=== PATIENT | male | born 1945 | race Hispanic/Latino ===

== ENCOUNTER 2017-07-28 12:20 | Inpatient (IN) | payer MEDICARE ==
--- NOTE | 2017-07-28 13:33 | RAD ---
UPRIGHT PORTABLE CHEST ONE VIEW: History: 72-year-old male with cough. Concern for congestive heart failure. Elevated troponin. Patient is on p eritoneal dialysis. Comparison: 03-22-17 FINDINGS: Cardiomegaly with bilateral vascular congestion and interstitial edema and pleural effusions, evidenc e for some congestive heart failure. IMPRESSION: Cardiomegaly with vascular congestion, interstitial edema, and pleural effusions, evidence for conges tive heart failure. Treatment and short term follow up suggested for resolution or stability. POS: [facility]
[2017-07-28 13:38] LABS: Mean Corpuscular HGB CONC 32.3 g/dL (32.0-36.0); Mean Corpuscular Hemoglobin 29.8 pg (27.0-31.0); Red Blood Cell (RBC) Count 4.03 mill/uL (4.70-6.10); White Blood Cell (WBC) Count 5.7 thou/uL (4.8-10.8)
[2017-07-28 14:00] LABS: ALT (SGPT) 14 U/L (8-55); AST (SGOT) 19 U/L (5-34); Albumin 3.4 g/dL (3.4-4.8); Alkaline Phosphatase 77 U/L (40-150); Anion Gap 23 mmol/L (10-20); BUN (Urea Nitrogen) 80 mg/dL (8.4-25.7); Bilirubin, Total 0.7 mg/dL (0.2-1.2); Calc. Creatinine Clearance 0 mL/min (70-130); Calcium 9.3 mg/dL (7.8-10.44); Carbon Dioxide 20 mmol/L (23-31); Chloride 96 mmol/L (98-107); Estimated GFR-MDRD 4; Globulin 3.3 g/dL (2.4-3.5); Glucose 113 mg/dL (83-110); Potassium 4.1 mmol/L (3.5-5.1); Protein, Total 6.7 g/dL (5.8-8.1); Sodium 135 mmol/L (136-145)
[2017-07-28 14:03] LABS: CKMB 4.3 ng/mL (0-6.6); Troponin I 0.277 ng/mL (< 0.028)
[2017-07-28 14:09] LABS: #Eosinphils 0.1 thou/uL (0.0-0.7); #Lymphocytes 0.4 thou/uL (1.20-3.40); #Monocytes 0.5 thou/uL (0.11-0.59); #Neutrophils 4.7 thou/uL (1.40-6.50); %Basophils 0.8 % (0.0-1.0); %Lymphocytes 7.1 % (21.0-51.0); %Monocytes 8.6 % (0.0-10.0); %Neutrophils 81.6 % (42.0-75.0); Mean Platelet Volume 9.1 fL (7.4-10.4); PLT Morphology Comment Appears Decreased; Platelet Count 100 thou/uL (130-400); RBC Morphology Normal
[2017-07-28] MEDS ORDERED: Acetaminophen 325 MG TAB ONE (15:08)
[2017-07-28] MEDS ORDERED: Dextrose 50% Abboject 50 ML SYRINGE SLOW IVP PRN (16:14)
[2017-07-28] MEDS ORDERED: Ondansetron ODT 4 MG TAB PO PRN (16:14)
[2017-07-28] MEDS ORDERED: Dextrose 5% in Water 1,000 ML IV PRN (16:14)
[2017-07-28] MEDS ORDERED: Oseltamivir 6 MG/ML ORAL SUSP PO SCH (16:30)
[2017-07-28] MEDS ORDERED: Furosemide 100 MG/10 ML VIAL SLOW IVP SCH (16:30)
[2017-07-28] MEDS ORDERED: Furosemide 40 MG/4 ML VIAL ONE (16:38)
[2017-07-28 17:04] LABS: CKMB 4.5 ng/mL (0-6.6)
[2017-07-28 17:10] LABS: Troponin I 0.328 ng/mL (< 0.028)
[2017-07-28] MEDS ORDERED: Ondansetron ODT 4 MG TAB SL PRN (19:32)
[2017-07-28] MEDS ORDERED: Acetaminophen 325 MG TAB PO PRN (19:32)
[2017-07-28] MEDS ORDERED: Ondansetron HCl/PF 4 MG/2 ML Vial IVP PRN (19:32)
[2017-07-28] MEDS: HYDROcodone/Acetaminophen 5/325 mg Tablet PO PRN (19:47)
[2017-07-28] MEDS: Sevelamer Carbonate 800 MG TAB PO SCH (19:48)
[2017-07-28 19:56] LABS: Troponin I 0.361 ng/mL (< 0.028)
[2017-07-28] MEDS: guaiFENesin ER 600 MG TAB PO SCH (21:13)
[2017-07-28] MEDS: Famotidine 20 MG TAB PO SCH (21:13)
[2017-07-28] MEDS: Heparin 5,000 UNITS/ML VIAL SC SCH (21:15)
[2017-07-29 01:23] LABS: CKMB 4.9 ng/mL (0-6.6)
[2017-07-29 01:34] LABS: Critical Call Chem Troponin I RESULT DECREASING; Troponin I 0.338 ng/mL (< 0.028)
[2017-07-29] MEDS: Benzonatate 100 MG CAP PO PRN ×2 (04:42→15:25)
[2017-07-29] MEDS: HYDROcodone/Acetaminophen 10/325 mg Tablet PO PRN ×2 (04:43→19:59)
[2017-07-29 05:45] LABS: Hemoglobin A1c 6.5 % (4.0-6.0)
[2017-07-29 05:48] LABS: #Eosinphils 0.1 thou/uL (0.0-0.7); #Lymphocytes 0.3 thou/uL (1.20-3.40); #Monocytes 0.4 thou/uL (0.11-0.59); #Neutrophils 3.6 thou/uL (1.40-6.50); %Basophils 0.7 % (0.0-1.0); %Lymphocytes 7.5 % (21.0-51.0); %Monocytes 9.3 % (0.0-10.0); %Neutrophils 79.6 % (42.0-75.0); Hemoglobin 11.5 g/dL (14.0-18.0); Mean Corpuscular HGB CONC 30.6 g/dL (32.0-36.0); Mean Corpuscular Hemoglobin 28.6 pg (27.0-31.0); Mean Corpuscular Volume 93.3 fl (80.0-94.0); Mean Platelet Volume 9.2 fL (7.4-10.4); Platelet Count 107 thou/uL (130-400); Red Blood Cell (RBC) Count 4.01 mill/uL (4.70-6.10); White Blood Cell (WBC) Count 4.5 thou/uL (4.8-10.8)
[2017-07-29 06:01] LABS: ALT (SGPT) 15 U/L (8-55); AST (SGOT) 19 U/L (5-34); Albumin 3.4 g/dL (3.4-4.8); Alkaline Phosphatase 79 U/L (40-150); Anion Gap 25 mmol/L (10-20); BUN (Urea Nitrogen) 78 mg/dL (8.4-25.7); Bilirubin, Total 0.7 mg/dL (0.2-1.2); Calc. Creatinine Clearance 7 mL/min (70-130); Calcium 9.1 mg/dL (7.8-10.44); Carbon Dioxide 19 mmol/L (23-31); Cardiac Risk 3.1 (Less than 4.5); Chloride 97 mmol/L (98-107); Cholesterol 147 mg/dl (< 200 Desired); Estimated GFR-MDRD 4; Globulin 3.5 g/dL (2.4-3.5); Glucose 277 mg/dL (83-110); HDL Cholesterol 47 mg/dL (>60 Neg Risk); LDL Cholesterol, Calculated 84 mg/dL; Magnesium 2.4 mg/dL (1.6-2.6); Potassium 3.9 mmol/L (3.5-5.1); Protein, Total 6.9 g/dL (5.8-8.1); Sodium 137 mmol/L (136-145); Triglycerides 81 mg/dL (Less than 150)
[2017-07-29] MEDS: HumaLOG 300 UNITS/3 ML VIAL SC PRN ×2 (06:28→21:32)
[2017-07-29 09:04] LABS: CKMB 5.1 ng/mL (0-6.6)
[2017-07-29 09:40] LABS: Troponin I 0.319 ng/mL (< 0.028)
[2017-07-29] MEDS: Gabapentin 300 MG CAP PO SCH (10:20)
[2017-07-29] MEDS: Acetaminophen 325 MG TAB PO PRN ×2 (10:20→15:20)
[2017-07-29] MEDS: guaiFENesin ER 600 MG TAB PO SCH ×2 (10:20→19:59)
[2017-07-29] MEDS: Aspirin 325 MG TAB PO SCH (10:20)
[2017-07-29] MEDS: Sevelamer Carbonate 800 MG TAB PO SCH ×3 (10:20→17:33)
[2017-07-29] MEDS: Heparin 5,000 UNITS/ML VIAL SC SCH ×2 (10:21→19:58)
--- NOTE | 2017-07-29 13:58 | PDOC.PN ---
- Subjective Encounter Start Date: 07/29/17 Encounter Start Time: 08:10 Pt feeling okay, breatihng slightly better. PD notes reviewed, lists 2400mL fluid removed, and i assume thats net. no f/c, no n/V/D/c. Echo just done, looks like a sig decreas ein systolic function, will ask cardiology to see. Trop stable at 0.3x X 3. tele unchanged no f/C, no N/V/d/C 10 point ROS performed and neg for all systems except as above. - Objective Resuscitation Status: full MAR Reviewed: Yes Vital Signs & Weight: Vital Signs (12 hours) Temp Pulse Pulse Pulse Pulse Resp BP 07/29/17 12:41 97.8 F 75 18 07/29/17 09:55 86 85 88 101/51 L BP BP BP Pulse Ox 07/29/17 12:41 93/55 L 96 07/29/17 09:55 104/55 L 108/51 L I&O: 07/28/17 07/29/17 07/30/17 06:59 06:59 06:59 Intake Total 300 Balance 300 Result Diagrams: 07/29/17 05:16 07/29/17 05:16 Additional Labs: Accuchecks 07/29/17 10:14 POC Glucose 71 Radiology Reviewed by me: Yes EKG Reviewed by me: Yes Phys Exam - Physical Examination Constitutional: NAD HEENT: PERRLA, moist MMs, sclera anicteric, oral pharynx no lesions Neck: no nodes, supple, full ROM 4cm JVD at 30 degrees Respiratory: no rhonchi, wheezing present coarse rales, low pitched exp wheezes. Cardiovascular: no rub regular rhythm, normal rate. 3/6 HSM at apex Gastrointestinal: soft, non-tender, no distention, positive bowel sounds Musculoskeletal: pulses present, edema present Neurological: non-focal, normal sensation, moves all 4 limbs Lymphatic: no nodes Psychiatric: normal affect, A&O x 3 Skin: no rash, normal turgor, cap refill <2 seconds Dx/Plan (1) Acute on chronic systolic CHF (congestive heart failure) Code(s): I50.23 - ACUTE ON CHRONIC SYSTOLIC (CONGESTIVE) HEART FAILURE Status : Acute Comment: follow up on echo, lasix not effective, renal following, CCM and fluid removal. Cardiology consulted (2) Anemia of renal disease Code(s): D63.1 - ANEMIA IN CHRONIC KIDNEY DISEASE Status: Chronic (3) Diabetes type 2, controlled Code(s): E11.9 - TYPE 2 DIABETES MELLITUS WITHOUT COMPLICATIONS Status: Chronic Qualifiers: Diabetes mellitus complication status: with kidney complications Diabetes mellitus complication detail: with nephropathy Diabetes mellitus mcc insulin use: without rn long term care use Qualified Code(s): E11.21 - Type 2 diabetes mellitus with diabetic nephropathy (4) ESRD on peritoneal dialysis Code(s): N18.6 - END STAGE RENAL DISEASE; Z99.2 - DEPENDENCE ON RENAL DIALYSIS Status: Chronic (5) Elevated troponin Code(s): R74.8 - ABNORMAL LEVELS OF OTHER SERUM ENZYMES Status: Chronic Comment: trop 0.2 to 0.3X x 3.no chest pain (6) HTN (hypertension) Code(s): I10 - ESSENTIAL (PRIMARY) HYPERTENSION Status: Chronic Qualifiers: Hypertension type: essential hypertension Qualified Code(s): I10 - Essential (primary) hypertension (7) Secondary hyperparathyroidism of renal origin Code(s): N25.81 - SECONDARY HYPERPARATHYROIDISM OF RENAL ORIGIN Status: Chronic - Plan cont current plan of care, PT/OT, respiratory therapy, out of bed/ambulate, DVT proph w/heparin * .
--- NOTE | 2017-07-29 16:35 | HP ---
DATE OF ADMISSION: 07/29/2017 TIME OF SERVICE: 1600 hours. CHIEF COMPLAINT: Shortness of breath. HISTORY OF PRESENT ILLNESS: Mr. Pereira is a 72-year-old male with history of diabetes , end-stage renal disease on hemodialysis for the last 2 years, hypertension, paroxysmal atrial fibri llation and coronary artery disease who presents to the Emergency Department for shortness of breath. The patient states he has had increasing shortness of breath with some left-sided chest discomfort or tightness for the last 3 days. He has had a cough that is productive of some phlegm that is yellow to green, but no blood. Shortness of breath continued to get worse and worse. He had some fevers mcnamara bjectively but did not have a thermometer to take and some night sweats. Denied any teeth chattering or rigors. He took some aspirin, but was not able to sleep. Continue to cough, especially when lyi ng flat. He did admit to some orthopnea and PND. Ultimately, presented to the emergency department for evaluation today. He was found to be in florid pulmonary edema, we subsequently called for admission. My arrival, the patient was more concerned about his cough than anything. He was given some Lasix wi th little effect. It was subsequently decided to admit to inpatient. Dr. Hanley, his biomedical engineering technologist, has been consulted, and is arranging peritoneal dialysis tonight for fluid removal. The patient had a f amador-like illness with body aches. He said flu swab has been taken, but I do not see an order nor resu lt yet. PAST MEDICAL HISTORY: 1. Diabetes mellitus, type 2. 2. End-stage renal disease on PD for 2 years. 3. Hypertension. 4. Paroxysmal atrial fibrillation. 5. Coronary artery disease. PAST SURGICAL HISTORY: Includes: 1. Left hallux amputation. 2. Peritoneal dialysis catheter placement. 3. Possible heart catheterization 3-4 years ago with and without a stress test. 4. Laparoscopic cholecystectomy remotely. HOME MEDICATIONS: The list in the emergency department was not correct. He says he is only taking g abapentin 300 mg p.o. daily, Zofran 4 mg as needed for nausea and vomiting, Renvela 800 mg p.o. t.i.d ., tramadol p.r.n. ALLERGIES: NKDA. FAMILY HISTORY: Significant for brother with a stroke, but his 80s. Has had diabetes in multiple [facility] members. SOCIAL HISTORY: Significant for him being Protestant. No blood product transfusion. Negativ e for habits x3, otherwise. REVIEW OF SYSTEMS: A 10-point review of systems was performed and negative for all other systems exc ept as stated as per HPI. PHYSICAL EXAMINATION: VITAL SIGNS: Temperature 98.2, pulse 93, blood pressure 132/79, respiratory 18, satting 92% on 4 lit ers. GENERAL: He is awake. He is alert. He is oriented x3. He is a disheveled looking, elderly Latin A mer[place] male who appears to be in moderate respiratory distress. HEENT: Normocephalic, atraumatic. Pupils equal, reactive bilaterally. There is no scleral icterus. Mucous membranes are moist. There are no visible lesions. No thrush. NECK: Supple. He has no lymphadenopathy, but does have a 6-7 cm of JVD bilaterally. He has got nor mal carotid upstrokes. I do not hear bruits. LUNGS: Diffuse coarse rales bilaterally. He has a prolonged expiratory phase and a high pitched whe ezing in inspiratory and expiratory. I do not hear rhonchi. CARDIOVASCULAR: Tachycardic but regular. There is a 3/6 holosystolic murmur best over the apex. He has got normal S1 and S2, otherwise. I do not hear an S4. ABDOMEN: Soft. He is distended with good bowel sounds. Peritoneal dialysis catheter is clean, dry, and intact. He has got no rebound, rigidity or guarding. EXTREMITIES: Show no signs of clubbing with 2+ edema to the mid tibial level. SKIN: Cool but cap refill around 3 seconds. MUSCULOSKELETAL: Normal to inspection. He has no inflammation and no palpable effusions. NEUROLOGIC: Cranial nerves II-XII grossly intact. He has 5/5 strength, no focal neurologic deficits . Normal speech pattern. LABORATORY DATA: Sodium 135, potassium 4.1, chloride 96, bicarbonate 20, BUN 80, creatinine 13.36, c alcium 9.3, glucose 113. Liver functions are completely normal. Troponin I was 0.277 and CK-MB of 4 .3. CBC showed a white count 5.7, hemoglobin 12.0, hematocrit 37.1, and platelets of 100,000. Chest x-ray showed cardiomegaly, vascular congestion and edema with bilateral effusions consistent wi th CHF. ASSESSMENT AND PLAN: 1. Acute congestive heart failure. On review, the patient does have a history of systolic congestiv e heart failure with an ejection fraction last known around 30-35%. We will give a large dose of Las ix to see if he responds, but ultimately needs fluid removal via dialysis. PD is being arranged, we will support him respiratory status napier and admit him to telemetry. A 2D echocardiogram has been or dered, serial cardiac biomarkers, will give him a little bit of a nitro paste if his blood pressure t olerates to see if the Lasix will have an effect. 2. Diabetes mellitus type 2, patient placed on diabetic renal diet with a sliding scale insulin. 3. Hypertension. Blood pressure borderline right now. We will hold off on any additional medicatio ns. 4. History of paroxysmal atrial fibrillation, and sinus tachycardia, right now, I will continue to w atch. 5. Acute hypoxic respiratory failure secondary to congestive heart failure. The patient will be adm itted as above.
[2017-07-29] MEDS: Senokot 8.6 MG TAB PO PRN (17:35)
--- NOTE | 2017-07-29 18:40 | CON ---
DATE OF CONSULTATION: 07/29/2017 REASON FOR CONSULTATION: Acute on chronic systolic heart failure. HISTORY OF PRESENT ILLNESS: Mr. Pereira is a 72-year-old gentleman who I have seen and evaluated in t he past. He has a history of cardiomyopathy of unknown etiology. He has been known in the last 3 ye ars. He has refused any further workup including coronary angiography. He states over the last week he has had increased shortness breath, lower extremity edema, PND, and o rthopnea. No chest pain or pressure noted. He is on peritoneal dialysis. PAST MEDICAL HISTORY: End-stage renal disease, diabetes mellitus, hypertension, atrial fibrillation. MEDICATIONS: Include Zofran, gabapentin, Renvela, tramadol. ALLERGIES: None. SOCIAL HISTORY: No current tobacco or alcohol use. REVIEW OF SYSTEMS: Ten point review of systems is reviewed and as above, otherwise negative. PHYSICAL EXAMINATION: GENERAL: He does appear elderly as stated age. VITAL SIGNS: Blood pressure 127/57, pulse 86, temperature afebrile. NEUROLOGIC: The patient is alert and oriented times 3 with no focal neurologic deficits. HEENT: Sclerae without icterus. Mouth has moist mucous membranes with normal pallor. NECK: No JVD. Carotid upstroke brisk. No bruits bilaterally. LUNGS: Crackles noted bilaterally. BACK: No scoliosis or kyphosis. CARDIAC: Regular rate and rhythm with normal S1 and S2. No S3 or S4 noted. No significant rubs, mu rmurs, thrills, or gallops noted throughout the precordium. PMI is not displaced. There is no mark ternal heave. ABDOMEN: Soft, nontender, nondistended. No peritoneal signs present. No hepatosplenomegaly. No abnormal striae. EXTREMITIES: 2+ femoral and 2+ dorsalis pedis pulses. No cyanosis, clubbing, or edema. SKIN: No gross abnormalities. PERTINENT LABORATORY DATA: Hemoglobin 11.5, peak troponin 0.38, creatinine 12.9. IMPRESSION: 1. Acute on chronic systolic heart failure. 2. Peritoneal dialysis. RECOMMENDATIONS: It is certainly difficult to treat with Lasix and Zaroxolyn at this time. I would discuss with Nephrology on how to increase his peritoneal dialysis for fluid removal. I will discuss once again on proceeding with angiography to assess his anatomy. He is Congregational.
[2017-07-29 19:19] LABS: Troponin I 0.356 ng/mL (< 0.028)
[2017-07-29] MEDS: Famotidine 20 MG TAB PO SCH (20:00)
[2017-07-30] MEDS: HYDROcodone/Acetaminophen 10/325 mg Tablet PO PRN (00:01)
[2017-07-30] MEDS: Benzonatate 100 MG CAP PO PRN ×2 (00:02→17:16)
[2017-07-30 05:05] LABS: #Eosinphils 0.1 thou/uL (0.0-0.7); #Lymphocytes 0.3 thou/uL (1.20-3.40); #Monocytes 0.7 thou/uL (0.11-0.59); #Neutrophils 4.3 thou/uL (1.40-6.50); %Basophils 0.3 % (0.0-1.0); %Eosinophils 1.9 % (0.0-10.0); %Lymphocytes 6.2 % (21.0-51.0); %Monocytes 13.5 % (0.0-10.0); %Neutrophils 78.1 % (42.0-75.0); Mean Corpuscular HGB CONC 32.1 g/dL (32.0-36.0); Mean Corpuscular Hemoglobin 29.9 pg (27.0-31.0); Mean Corpuscular Volume 93.1 fl (80.0-94.0); Mean Platelet Volume 9.2 fL (7.4-10.4); Platelet Count 97 thou/uL (130-400); White Blood Cell (WBC) Count 5.5 thou/uL (4.8-10.8)
[2017-07-30 05:23] LABS: Anion Gap 24 mmol/L (10-20); BUN (Urea Nitrogen) 77 mg/dL (8.4-25.7); Calc. Creatinine Clearance 7 mL/min (70-130); Calcium 8.8 mg/dL (7.8-10.44); Carbon Dioxide 21 mmol/L (23-31); Chloride 97 mmol/L (98-107); Estimated GFR-MDRD 4; Glucose 180 mg/dL (83-110); Magnesium 2.4 mg/dL (1.6-2.6); Potassium 3.8 mmol/L (3.5-5.1); Sodium 138 mmol/L (136-145)
--- NOTE | 2017-07-30 06:11 | PDOC.EVN ---
Event Note - Event Note Event Note: called by nursing for a-fib w RVR.Pt w h/o same. non compliant w meds. cardiazem iv X1 given without effect.will restart coreg BID.cardiology following.Will defer Amiodarone and anticoagulation to day team to address.HD stable for now.
--- NOTE | 2017-07-30 06:26 | CON ---
DATE OF CONSULTATION: 07/29/2017 HISTORY OF PRESENT ILLNESS: Mr. Pereira is a 72-year-old male with ESRD currently on periton eal dialysis and admitted for shortness of breath. He was noted to be in CHF. We have used 4.25% PD solution to enhance ultrafiltration. He tells me this afternoon that shortness of breath is little improved. He denies any chest pain with this. REVIEW OF SYSTEMS: Positive for shortness of breath. No syncopal episode. Positive for productive cough. No nausea, no vomiting, no fever or chills, no headache, no diplopia, no hematochezia, no suad javy, no hematemesis, no syncopal episode, no fever or chills. No dysuria, no urinary frequency. No headache. Denies any new rash. PAST MEDICAL HISTORY: ESRD from diabetic nephropathy, hypertension, type 2 diabetes mellitus, status post congestive heart failure. PAST SURGICAL HISTORY: Status post PD catheter placement, status post amputation of left great toe, status post cholecystectomy. SOCIAL HISTORY: Patient is . Lives with his , lives in [place], 3 children. He is a retired ceramic layer. Education, elementary. Currently not smoking. Currently, no alcohol intak e, sedentary lifestyle. ALLERGIES: None. TRAUMA: None. IMMUNIZATIONS: Up to date. HOSPITALIZATIONS: Please see past medical history. FAMILY HISTORY: No family history of ESRD. PHYSICAL EXAMINATION: VITAL SIGNS: Blood pressure 127/57, heart rate 86, respiratory rate 16, temperature 97.2, pulse ox 9 8%. GENERAL: Awake, supine, comfortable, not in overt distress. SKIN: Adequate turgor. HEENT: Slightly pale conjunctivae, anicteric sclerae. NECK: No neck mass, no carotid bruits, no JVD. CHEST: No deformities. LUNGS: Harsh grade sounds. HEART: Normal sinus rhythm. No murmur, no gallops, no rubs. ABDOMEN: Globular, soft, nontender. Positive for PD catheter. EXTREMITIES: Positive for edema, no deformities. NEUROLOGIC: Awake, oriented to 3 spheres. Moving all extremities. No tremors, no asterixis. MEDICATIONS: On 07/29/2017, [place] 10/325 q.4 p.r.n., DuoNeb q.4 p.r.n., aspirin 325 mg daily, Tessal on Perles 100 mg p.o. t.i.d., Pepcid 20 mg q.h.s., Neurontin 300 mg daily, heparin 5000 units subcu b .i.d., Renvela 800 mg p.o. t.i.d. with meals. LABORATORY DATA: 1. Laboratories of 07/29/2017, white count 4.5, hemoglobin 11.5, hematocrit 37.4. Sodium 137, potas sium is 3.9, chloride 97, carbon dioxide 19, BUN 78, creatinine 12.96, glucose 277, AST 19, ALT 15, a lbumin 3.4, troponin I 0.319. Cholesterol 147. On 07/28/2017, chest x-ray showed cardiomegaly with CHF. 2. On 07/29/2017, cardiac echo showed EF of 20% to 25%. ASSESSMENT AND PLAN: 1. Congestive heart failure - we will adjust the peritoneal dialysis regimen. We will continue to u se a 4.25% PD solution and increased the fill volume 2.5 liters to enhance ultrafiltration. 2. End-stage renal disease, stable, continuing current peritoneal dialysis of at least 10-11 hertz. Please note I have increased the fill volume to 2.5 liters using 4.25% PD solution. Overall, I agree with current management. If needed, we can consult Cardiology. I have also reviewe d this patient's medications - due to decreased EF. I would suggest we start this patient on losarta n 25 mg tab q.a.m. We will check base met and CBC in a.m.
[2017-07-30] MEDS: Carvedilol 6.25 MG TAB PO SCH ×3 (06:38→17:25)
[2017-07-30] MEDS ORDERED: Losartan 25 MG TAB PO SCH (09:00)
[2017-07-30] MEDS: Sevelamer Carbonate 800 MG TAB PO SCH ×3 (09:12→17:25)
[2017-07-30] MEDS: Aspirin 325 MG TAB PO SCH (09:12)
[2017-07-30] MEDS: Heparin 5,000 UNITS/ML VIAL SC SCH ×2 (09:12→20:41)
[2017-07-30] MEDS: guaiFENesin ER 600 MG TAB PO SCH ×2 (09:13→20:41)
[2017-07-30] MEDS: Magnesium Oxide 400 MG TAB PO SCH (09:13)
[2017-07-30] MEDS: Gabapentin 300 MG CAP PO SCH (09:13)
--- NOTE | 2017-07-30 09:23 | PRG ---
DATE OF SERVICE: 07/30/2017 SUBJECTIVE: Mr. Pereira is 72-year-old male with ESRD, currently on maintenance peritoneal d ialysis. Due to the shortness of breath, we have changed his PD solution to 4.25% solution to enhanc e ultrafiltration. We pulled about 2.4 liters of fluid overnight with this patient. He still has so me mild shortness of breath. I did discuss the case with Dr. Willson. I was told that the patient was declining cardiac catheterization. However, I rediscussed the issue with the patient and is now agreeing to proceed with cardiac catheterization. Also told me he declines blood transfusion. He t ells me he is Druze. My plan is to continue 4.25% PD solution to enhance ultrafiltration for fluid removal. PHYSICAL EXAMINATION: VITAL SIGNS: Blood pressure is 126/76, heart rate is 122, temperature 100.8. GENERAL: Noted to be awake, alert, not in overt distress. SKIN: Adequate turgor. HEENT: He has pinkish conjunctivae, anicteric sclerae. NECK: No neck mass, no carotid bruits, no JVD. LUNGS: Decreased breath sounds. HEART: Tachycardic. ABDOMEN: Globular, soft, nontender. Positive for PD catheter. EXTREMITIES: Trace edema. MEDICATIONS: Medications of 07/30/2017 was reviewed. LABORATORY DATA: Laboratories of 07/30/2017; white count 5.5, hemoglobin 12, sodium 138, potassium 3 .8, chloride 97, carbon dioxide 21, BUN 77, creatinine 12.47, glucose 180, calcium 8.8, magnesium 2.4 . ASSESSMENT AND PLAN: 1. Fever - we will continue to observe. 2. End-stage renal disease, stable. We will continue 4.25% peritoneal dialysis solution to enhance ultrafiltration and fluid removal with this patient. At this time, there is no indication to convert ing to hemodialysis at the present time. 3. Shortness of breath, multifactorial - could be congestive heart failure. Congestive heart failur e could also be secondary to cardiac ischemia. Case discussed with Dr. Willson. Initially, the pa kennedy was declining cardiac catheterization, but on a second conversation with him, he wishes to proc eed with the cardiac catheterization. We will recheck basic metabolic panel and CBC in a.m.
[2017-07-30] MEDS: DOBUTamine 500 mg/250 ml 250 ML IVPB SCH (15:16)
--- NOTE | 2017-07-30 15:22 | PDOC.PN ---
- Subjective Encounter Start Date: 07/30/17 Encounter Start Time: 08:15 Pt back into afib with RVR earlier this morning, got Cardizem IV x 1, litttle effect. BP low, pt to have PD dialysate removed. No F/C, no N/V/d/C, +cough, no sputum production. Pt with O2 in 80, BP borderline. Since initial visit, dialysate revealed 2500mL removed, talked with Dr Willson , 500mL givne back IV, but still low BP. Starte don at 5mcg 10 point ROS performed and neg for all systems except as per HPI - Objective MAR Reviewed: Yes Vital Signs & Weight: Vital Signs (12 hours) Temp Pulse Resp BP BP BP Pulse Ox 07/30/17 14:50 98.4 F 77 28 H 97/52 L 96 07/30/17 14:02 102/59 L 07/30/17 13:20 90 84/54 L 07/30/17 11:31 98.6 F 99 24 H 88/58 L 93 L 07/30/17 09:13 98.6 F 90 24 H 93 L 07/30/17 07:30 99.3 F 138 H 20 168/107 H 88 L 07/30/17 06:38 126/76 07/30/17 03:50 100.8 F H 122 H 20 115/73 92 L I&O: 07/29/17 07/30/17 07/31/17 06:59 06:59 06:59 Intake Total 960 Output Total 0 Balance 960 Result Diagrams: 07/30/17 04:12 07/30/17 04:12 Additional Labs: Accuchecks 07/29/17 07/29/17 21:29 17:18 POC Glucose 260 H 94 Radiology Reviewed by me: Yes EKG Reviewed by me: Yes Phys Exam - Physical Examination Constitutional: NAD HEENT: PERRLA, moist MMs, sclera anicteric, oral pharynx no lesions Neck: no nodes, supple, full ROM 5cm JVD, no guillermo-A waves Respiratory: no rhonchi, wheezing present diffuse wheezing and coarse rales bilaterally Cardiovascular: no rub tachy, irregular Gastrointestinal: soft, non-tender, no distention, positive bowel sounds Musculoskeletal: pulses present, edema present Neurological: non-focal, normal sensation, moves all 4 limbs Lymphatic: no nodes Psychiatric: normal affect, A&O x 3 Skin: no rash, normal turgor, cap refill <2 seconds Dx/Plan (1) Acute on chronic systolic CHF (congestive heart failure) Code(s): I50.23 - ACUTE ON CHRONIC SYSTOLIC (CONGESTIVE) HEART FAILURE Status : Acute Comment: follow up on echo, lasix not effective, renal following, CCM and fluid removal. Cardiology consulted. PD X 2 completed about 5L removed total. No improvement. Pt unabl eto lay flat, cannot cath atpresent. Start , watch output (2) Anemia of renal disease Code(s): D63.1 - ANEMIA IN CHRONIC KIDNEY DISEASE Status: Chronic (3) Diabetes type 2, controlled Code(s): E11.9 - TYPE 2 DIABETES MELLITUS WITHOUT COMPLICATIONS Status: Chronic Qualifiers: Diabetes mellitus complication status: with kidney complications Diabetes mellitus complication detail: with nephropathy Diabetes mellitus meterman insulin use: without longterm use Qualified Code(s): E11.21 - Type 2 diabetes mellitus with diabetic nephropathy (4) ESRD on peritoneal dialysis Code(s): N18.6 - END STAGE RENAL DISEASE; Z99.2 - DEPENDENCE ON RENAL DIALYSIS Status: Chronic Comment: nightly PD X 10 hours at present, pulling about 2.5L per night (5) Elevated troponin Code(s): R74.8 - ABNORMAL LEVELS OF OTHER SERUM ENZYMES Status: Chronic Comment: trop 0.2 to 0.3X x 3.no chest pain (6) HTN (hypertension) Code(s): I10 - ESSENTIAL (PRIMARY) HYPERTENSION Status: Chronic Qualifiers: Hypertension type: essential hypertension Qualified Code(s): I10 - Essential (primary) hypertension Comment: BP low, on , not titrating. BP meds on hold (7) Secondary hyperparathyroidism of renal origin Code(s): N25.81 - SECONDARY HYPERPARATHYROIDISM OF RENAL ORIGIN Status: Chronic - Plan * .
[2017-07-30] MEDS: Acetaminophen 325 MG TAB PO PRN (17:16)
[2017-07-30] MEDS ORDERED: Sodium Chloride 0.9% 500 ML IVPB SCH (19:45)
[2017-07-30] MEDS: Famotidine 20 MG TAB PO SCH (20:41)
--- NOTE | 2017-07-30 21:16 | PRG ---
DATE OF SERVICE: 07/30/2017 SUBJECTIVE: Mr. Pereira continues to have increased shortness of breath. Today, he had difficulty wi th hypotension and required Dobutrex. No chest pain or pressure noted. PHYSICAL EXAMINATION: VITAL SIGNS: Blood pressure 141/57, pulse 77, temperature 98.4. LUNGS: Crackles noted bilaterally. CARDIAC: Irregularly irregular. ABDOMEN: Soft, nontender, nondistended. EXTREMITIES: No edema. IMPRESSION: Cardiomyopathy of unknown etiology. RECOMMENDATIONS: Mr. Pereira has agreed to proceed with angiography. I have discussed the procedure in full detail with Mr. Pereira. The risks of the procedure include but are not limited to the follow ing: , stroke, CA, need for emergency surgery, loss of limb, bleeding, and infection, as well as a re action to the dye causing kidney failure and needing long-term dialysis. I also discussed the risks of PCI to include all of the above including coronary dissection and perforation in addition to acute stent thrombosis and restenosis. All questions were answered. We would also recommend amiodarone therapy for recent atrial fibrillation. Unfortunately, Mr. Jeanette cueva has some difficulty with compliance in the past. We would recommend a bare metal stent if needed. We will schedule once he is able to lie on supine position.
[2017-07-31 04:36] LABS: #Eosinphils 0.1 thou/uL (0.0-0.7); #Lymphocytes 0.3 thou/uL (1.20-3.40); #Monocytes 0.4 thou/uL (0.11-0.59); %Basophils 0.2 % (0.0-1.0); %Eosinophils 1.5 % (0.0-10.0); %Lymphocytes 7.9 % (21.0-51.0); %Monocytes 9.3 % (0.0-10.0); %Neutrophils 81.1 % (42.0-75.0); Hemoglobin 10.5 g/dL (14.0-18.0); Mean Corpuscular HGB CONC 31.7 g/dL (32.0-36.0); Mean Corpuscular Hemoglobin 29.4 pg (27.0-31.0); Mean Corpuscular Volume 92.8 fl (80.0-94.0); Mean Platelet Volume 8.8 fL (7.4-10.4); Platelet Count 93 thou/uL (130-400); RBC Distribution Width 13.9 % (11.5-14.5); Red Blood Cell (RBC) Count 3.56 mill/uL (4.70-6.10); White Blood Cell (WBC) Count 3.7 thou/uL (4.8-10.8)
[2017-07-31 04:39] LABS: Anion Gap 19 mmol/L (10-20); BUN (Urea Nitrogen) 76 mg/dL (8.4-25.7); Calc. Creatinine Clearance 7 mL/min (70-130); Carbon Dioxide 25 mmol/L (23-31); Chloride 96 mmol/L (98-107); Estimated GFR-MDRD 4; Glucose 312 mg/dL (83-110); Magnesium 2.3 mg/dL (1.6-2.6); Potassium 3.6 mmol/L (3.5-5.1); Sodium 136 mmol/L (136-145)
[2017-07-31] MEDS ORDERED: Iopamidol 370 76% 100 ML VIAL ONE (08:06)
[2017-07-31] MEDS ORDERED: Epoetin (ESRD) 20,000 UNITS/ML SC SCH (09:00)
[2017-07-31] MEDS: Gabapentin 300 MG CAP PO SCH (09:01)
[2017-07-31] MEDS: Carvedilol 6.25 MG TAB PO SCH ×2 (09:01→17:49)
[2017-07-31] MEDS: Sevelamer Carbonate 800 MG TAB PO SCH ×3 (09:01→17:49)
[2017-07-31] MEDS: Aspirin 325 MG TAB PO SCH (09:01)
[2017-07-31] MEDS: Acetaminophen 325 MG TAB PO PRN ×4 (09:02→20:37)
[2017-07-31] MEDS: Senokot 8.6 MG TAB PO PRN (09:02)
[2017-07-31] MEDS: Heparin 5,000 UNITS/ML VIAL SC SCH ×2 (09:02→20:28)
[2017-07-31] MEDS: Magnesium Oxide 400 MG TAB PO SCH (09:02)
[2017-07-31] MEDS: guaiFENesin ER 600 MG TAB PO SCH ×2 (09:02→20:28)
[2017-07-31] MEDS: Benzonatate 100 MG CAP PO PRN ×3 (09:02→14:06)
--- NOTE | 2017-07-31 09:23 | PRG ---
DATE OF SERVICE: 07/31/2017 SUBJECTIVE: Mr. Pereira is a 72-year-old male with ESRD - currently on peritoneal dialysis a nd admitted for shortness of breath. He was found to be in CHF. Cardiology has been following. The plan by Cardiology is eventually for him to undergo cardiac catheterization. I have maxed out ultra filtration with this patient by changing his PD solution to 4.25% PD solution. He seems to be tolera ting this. During the course of his hospitalization, he was also been noted to be on the hypotensive side. He has been started on IV dobutamine. As per recommendation with Cardiology, we will start h im on a fixed dose of dopamine 2.5 mcg per kilogram. We are trying to optimize patient prior to the set cardiac catheterization. Please note he is also Spiritism and is declining any blood tra nsfusion. This morning, he tells me his shortness of breath is slightly. PHYSICAL EXAMINATION: VITAL SIGNS: Blood pressure is 104/56, heart rate 85, respiratory rate 18, temperature 98.4, pulse o x 96%. GENERAL: Awake, supine, comfortable, not in overt distress. SKIN: Adequate turgor. HEENT: Slightly pale conjunctivae, anicteric sclerae. NECK: No neck mass, no carotid bruits, no JVD. CHEST: No deformities. LUNGS: Decreased breath sounds. HEART: Normal sinus rhythm. No murmur, no gallops, no rubs. ABDOMEN: Globular, soft, nontender, no masses. EXTREMITIES: Trace edema, no deformities. MEDICATIONS: Medications of 07/31/2017 was reviewed. LABORATORY DATA: Laboratories of 07/31/2017; white count 3.7, hemoglobin 10.5, sodium 136, potassium 3.6, chloride 96, carbon dioxide 25, BUN 76, creatinine 12.33, glucose 312, calcium 8.0, magnesium 2 .3. ASSESSMENT AND PLAN: 1. Hypotension - we will start on dopamine at 2.5 mcg per kilogram. In addition, we will be discont inuing the patient's losartan. 2. Congestive heart failure - on IV dobutamine, maxing out ultrafiltration with the dialysis. Patie nt is for a planned cardiac catheterization. 3. Anemia - patient is Spiritism. No blood transfusion will be done. However, I have decid ed to start Epogen and iron supplementation with this patient. 4. End-stage renal disease, stable. Continue current CCPD regimen and will continue to use 4.25% pe ritoneal dialysis solution to enhance ultrafiltration. Overall, prognosis remains guarded.
[2017-07-31] MEDS: DOBUTamine 500 mg/250 ml 250 ML IVPB SCH (09:41)
[2017-07-31] MEDS: DOPamine 400 MG/D5W 250 ML 250 ML IVPB SCH ×2 (10:27→23:30)
--- NOTE | 2017-07-31 11:38 | PDOC.PN ---
- Subjective Encounter Start Date: 07/31/17 Encounter Start Time: 10:15 Pt feels better, some sharp parasternal CP with coughing and deep ainspiration. BP still low on , Dr Willson added 2.5 of DA. No F/C, no N/V/D/C. Breathing better, HR down. Pt informed Dr Willson that he had a heart cath 4 years ago in [place], attempting to get records. If no CAD then, likely non-ischemic CM and no need for cath now. 10 point ROS performed and neg for all systems except as per HPI - Objective Resuscitation Status: FULL MAR Reviewed: Yes Vital Signs & Weight: Vital Signs (12 hours) Temp Pulse Resp BP BP Pulse Ox 07/31/17 09:01 104/56 L 07/31/17 07:59 96 07/31/17 07:57 101 H 20 96 07/31/17 07:20 98.4 F 85 18 96 07/31/17 07:11 97.9 F 61 18 104/56 L 94 L 07/31/17 03:10 98.4 F 85 18 81/60 L 96 07/31/17 00:14 83 22 H 96 Weight Weight 210 lb 8 oz I&O: 07/30/17 07/31/17 08/01/17 06:59 06:59 06:59 Intake Total 960 1599 Output Total 0 0 Balance 960 1599 Result Diagrams: 07/31/17 03:55 07/31/17 03:55 Additional Labs: Accuchecks 07/31/17 07/31/17 07/30/17 10:54 06:03 21:14 POC Glucose 85 201 H 218 H 07/30/17 07/30/17 17:00 11:30 POC Glucose 111 H 133 H Radiology Reviewed by me: Yes EKG Reviewed by me: Yes Phys Exam - Physical Examination Constitutional: NAD mild resp distress, chronically ill-appearing HEENT: PERRLA, moist MMs, sclera anicteric, oral pharynx no lesions Neck: no nodes, supple, full ROM 5cm JVD Respiratory: no wheezing, no rhonchi coarse B breath sounds Cardiovascular: RRR, no rub 3/6 HSM apex Gastrointestinal: soft, non-tender, no distention, positive bowel sounds Musculoskeletal: pulses present, edema present Neurological: non-focal, normal sensation, moves all 4 limbs Lymphatic: no nodes Psychiatric: normal affect, A&O x 3 Skin: no rash, normal turgor, cap refill <2 seconds Dx/Plan (1) Acute on chronic systolic CHF (congestive heart failure) Code(s): I50.23 - ACUTE ON CHRONIC SYSTOLIC (CONGESTIVE) HEART FAILURE Status : Acute Comment: echo with 20-25% EF, lasix not effective, renal following, CCM and fluid removal. Changed to hightest UF via PD we have. Cardiology consulted. PD X 2 completed about 7.5L removed total. No improvement. Pt unable to lay flat, cannot cath at present. Started , Dopamine added today, watch output (2) Anemia of renal disease Code(s): D63.1 - ANEMIA IN CHRONIC KIDNEY DISEASE Status: Chronic (3) Diabetes type 2, controlled Code(s): E11.9 - TYPE 2 DIABETES MELLITUS WITHOUT COMPLICATIONS Status: Chronic Qualifiers: Diabetes mellitus complication status: with kidney complications Diabetes mellitus complication detail: with nephropathy Diabetes mellitus halfway insulin use: without halfway use Qualified Code(s): E11.21 - Type 2 diabetes mellitus with diabetic nephropathy (4) ESRD on peritoneal dialysis Code(s): N18.6 - END STAGE RENAL DISEASE; Z99.2 - DEPENDENCE ON RENAL DIALYSIS Status: Chronic Comment: nightly PD X 10 hours at present, pulling about 2.5L per night. Changed higher % dialysate to maximize UF. (5) Elevated troponin Code(s): R74.8 - ABNORMAL LEVELS OF OTHER SERUM ENZYMES Status: Chronic Comment: trop 0.2 to 0.3X x 3. no chest pain (6) HTN (hypertension) Code(s): I10 - ESSENTIAL (PRIMARY) HYPERTENSION Status: Chronic Qualifiers: Hypertension type: essential hypertension Qualified Code(s): I10 - Essential (primary) hypertension Comment: BP low, on , not titrating. BP meds on hold (7) Secondary hyperparathyroidism of renal origin Code(s): N25.81 - SECONDARY HYPERPARATHYROIDISM OF RENAL ORIGIN Status: Chronic - Plan * .
[2017-07-31] MEDS ORDERED: Acetaminophen/Codeine 30-300mg Tablet PO PRN ×4 (13:28→13:36)
[2017-07-31] MEDS ORDERED: Nitroglycerin 0.4 MG TAB (25 Tab Bottle) SL PRN (13:28)
[2017-07-31] MEDS ORDERED: Sodium Chloride 0.9% 200 ML IV SCH (13:30)
[2017-07-31] MEDS ORDERED: Sodium Chloride 0.9% 1,000 ML IV SCH ×3 (13:30→14:15)
[2017-07-31] MEDS: Sodium Chloride 0.9% 1,000 ML IV SCH ×2 (14:07→23:32)
--- NOTE | 2017-07-31 14:32 | CON ---
DATE OF CONSULTATION: 07/31/2017 SERVICE: Pulmonary Medicine. REASON FOR CONSULTATION: ICU patient. HISTORY OF PRESENT ILLNESS: The patient is a 72-year-old male with past medical history sig nificant for end-stage renal disease on peritoneal dialysis. He presented to the emergency departmen with increasing shortness of breath and some left-sided chest discomfort and tightness that had bee n ongoing for a period of 3 days. The chest pain was worse whenever he was coughing. He has had gre en to yellow sputum. He denies any current fevers, chills, nausea, vomiting, or current chest discom fort. The chest pain that he previously noted has essentially resolved. Denies any fevers, myalgia or malaise. He has had very frequent headaches over the last couple of days. Otherwise, there has b een no interval change to his condition. He did have an appetite up until 3 days ago. At this point , he does not have much of one. He was placed on the floor. Because of marginal blood pressures shannon und the time of his catheterization, he was transitioned to the ICU. PAST MEDICAL HISTORY: 1. Type 2 diabetes mellitus. 2. End-stage renal disease, on peritoneal dialysis x2 years. 3. Hypertension. 4. Paroxysmal atrial fibrillation. 5. Coronary artery disease. PAST SURGICAL HISTORY: 1. Left great toe amputation. 2. Peritoneal dialysis catheter placement. 3. Cardiac catheterization x2. 4. Laparoscopic cholecystectomy. ALLERGIES: No known drug allergies. MEDICATIONS LIST: List of his inpatient medications were reviewed. Multiple updates were made at th is time. FAMILY HISTORY: Noncontributory. SOCIAL HISTORY: He is a Yazidism. He would refuse any blood apply to transfusions. Negati ve for alcohol, tobacco or illicit drug use otherwise. REVIEW OF SYSTEMS: General, head, ears, eyes, nose, throat, cardiovascular, respiratory, GI, , mus culoskeletal, neurologic and skin is negative except as mentioned in the HPI. PHYSICAL EXAMINATION: VITAL SIGNS: Afebrile with T-max of 100.8, pulse 125, blood pressure 83/58, respirations 23, saturat ion 92% on 4 liters nasal cannula. GENERAL: The patient is awake and alert, in no apparent distress. LUNGS: Decent air entry with bilateral wheezing and rhonchi present. I did not appreciate any crack les, but only listening anteriorly. HEART: Tachycardic. Irregular. ABDOMEN: Soft. Minimal tenderness to palpation with slight rebound. Bowel sounds are highly active . No guarding. MUSCULOSKELETAL: No cyanosis or clubbing. There is no pitting in the bilateral lower extremities. NEUROLOGIC: Grossly nonfocal. GENITOURINARY: No Batres. LABORATORY DATA: WBC 3.7, hemoglobin 10.5, platelets 93,000. Creatinine 12.33. Basic metabolic pro file is otherwise unremarkable. Magnesium 2.3. Cardiac enzymes were gently trending upward to 0.356 . Hemoglobin A1c 6.5. Liver function studies are completely unremarkable. Influenza A and B is neg ative. IMAGING: Chest x-ray demonstrates right-sided pleural effusion, apparently is layering. There is fl uid in both fissures that are identified. There is a left-sided pleural parenchymal abnormality. Ce phalization is present in the bilateral lung ortiz. There is a possible right lower lobe alveolar o pacification. ASSESSMENT: 1. Acute hypoxic respiratory failure. 2. Acute bronchitis. 3. End-stage renal disease, on peritoneal dialysis. 4. Severe sepsis, source unknown. PLAN: Agree with blood cultures. Empiric antibiotics will be initiated. The patient is currently o n dopamine, but he is clinically a little dry. As such, I will give him a liter of fluid. Hopefully , he will be off of the dopamine at the end of this. If not, IV access will need to be established. Dr. Willson's has put him on some maintenance fluids which will be continued for the time being. Pulmonary or Critical Care will continue to follow in this location.
[2017-07-31] MEDS: Amiodarone HCl 450 MG, Admixture Fee 1 EACH in Dextrose 5% in Water 250 ML IVPB SCH ×6 (16:00→23:28)
--- NOTE | 2017-07-31 19:21 | CON ---
DATE OF CONSULTATION: 07/31/2017 Mr. Pereira continued to remain hypotensive after angiography. His LVEDP was estimated 20. This went against volume contraction. This also went against heart failure. There was concern for sepsis. T he patient was fairly asymptomatic. I did discuss the case with Dr. Dodson as well as Dr. Daniel Pascal. They decided to proceed with IC U observation due to persistent hypotension despite pressure support. We will place him on dobutamine as well as Dobutrex. We will also get blood cultures to assess for a n infection. I also spent 30 minutes with his family discussing the options. I did discuss proceeding with a ILANA cardioversion. This will be scheduled for tomorrow. He converted to atrial fibrillation 2 days ago. Since that time, he has been hypotensive. I am sure whether atrial fibrillation is the major or mi nor contributor. I discussed the procedure in full detail with family. Risks include but are not li mited to the following: damage to teeth, mouth, back of throat, damage to esophagus requiring emerge ncy surgery. I also discussed cardioversion including stroke, burning skin, need for repeat cardiove rsion and failed cardioversion. We will place him on IV amiodarone. If he is stable through the weekend with negative blood cultures, we will then proceed with stent wade cement to the right coronary artery. He is not interested in bypass surgery. We would recommend a b are metal stent given his history of noncompliance. He and his family stated he can take Plavix for at least a month. I did spend 45 minutes with Mr. Pereira as well as his family and I discussed case with Dr. Casey garcia as well as Dr. Daniel Pascal.
[2017-07-31] MEDS: Famotidine 20 MG TAB PO SCH (20:28)
[2017-07-31] MEDS: Piperacillin/Tazobactam 2.25 GM in Sodium Chloride 0.9% 50 ML IVPB SCH (22:00)
[2017-08-01 05:15] LABS: #Lymphocytes 0.5 thou/uL (1.20-3.40); #Monocytes 0.4 thou/uL (0.11-0.59); #Neutrophils 3.4 thou/uL (1.40-6.50); %Eosinophils 0.4 % (0.0-10.0); %Lymphocytes 10.7 % (21.0-51.0); %Monocytes 10.1 % (0.0-10.0); %Neutrophils 78.8 % (42.0-75.0); Hemoglobin 11.3 g/dL (14.0-18.0); Mean Corpuscular HGB CONC 31.8 g/dL (32.0-36.0); Mean Corpuscular Hemoglobin 29.6 pg (27.0-31.0); Mean Corpuscular Volume 93.1 fl (80.0-94.0); Mean Platelet Volume 9.2 fL (7.4-10.4); Platelet Count 99 thou/uL (130-400); Red Blood Cell (RBC) Count 3.83 mill/uL (4.70-6.10); White Blood Cell (WBC) Count 4.3 thou/uL (4.8-10.8)
[2017-08-01 05:20] LABS: Anion Gap 20 mmol/L (10-20); BUN (Urea Nitrogen) 70 mg/dL (8.4-25.7); Calc. Creatinine Clearance 8 mL/min (70-130); Calcium 7.9 mg/dL (7.8-10.44); Carbon Dioxide 20 mmol/L (23-31); Chloride 96 mmol/L (98-107); Estimated GFR-MDRD 5; Glucose 240 mg/dL (83-110); Potassium 4.2 mmol/L (3.5-5.1); Sodium 132 mmol/L (136-145)
[2017-08-01] MEDS: Piperacillin/Tazobactam 2.25 GM in Sodium Chloride 0.9% 50 ML IVPB SCH ×2 (05:26→16:08)
[2017-08-01] MEDS: Sodium Chloride 0.9% 1,000 ML IV SCH (07:48)
[2017-08-01] MEDS: Carvedilol 6.25 MG TAB PO SCH ×2 (10:01→17:34)
--- NOTE | 2017-08-01 10:41 | PRG ---
DATE OF SERVICE: 08/01/2017 SUBJECTIVE: Mr. Pereira is a 72-year-old male with ESRD, currently on CCPD. He underwent pe ritoneal dialysis last time without difficulty. We removed about 800 fluid. He also underwent a car diac catheterization with findings of 3-vessel disease. He was referred to Cardiothoracic Surgery. Since the patient is Sabianist, the patient declined any surgery at the present time. The pl an is to avoid some more conservative management. Possibility of coronary stent placement in the sil r future. We will be adjusting his peritoneal dialysis. PHYSICAL EXAMINATION: VITAL SIGNS: Blood pressure is 108/63, heart rate 72, respiratory rate 25, pulse ox 100%. GENERAL: Awake, alert, supine, comfortable, obese. SKIN: Adequate turgor. HEENT: He has pinkish conjunctivae, anicteric sclerae. NECK: No neck mass, no carotid bruits, no JVD. CHEST: No deformities. LUNGS: Decreased breath sounds. HEART: Normal sinus rhythm. No murmur, no gallops, no rubs. ABDOMEN: Globular, soft, nontender, no masses. EXTREMITIES: No edema. MEDICATIONS: Medications of 08/01/2017 was reviewed. LABORATORY DATA: Laboratories of 08/01/2017; white count 4.2, hemoglobin 11.3, sodium 132, potassium 4.2, chloride 96, carbon dioxide 20, BUN 70, creatinine 11.02, calcium 7.9. ASSESSMENT AND PLAN: 1. End-stage renal disease, stable. Continue current CCPD regimen. My plan is to use a 4.25% perit ahumada dialysis solution tonight to enhance ultrafiltration. 2. Mild shortness of breath - currently on continuous positive airway pressure/bilevel positive airw ay pressure. 3. Coronary artery disease - 3 vessel disease was found. Patient ideally should be surgical daquan te, but due to his reviews of blood transfusion, the patient may need to be shipped out to another [place] [facility]. 4. Borderline anemia - on weekly Epogen. The patient is declining blood transfusion.
--- NOTE | 2017-08-01 11:24 | PDOC.PN ---
- Subjective Encounter Start Date: 08/01/17 Encounter Start Time: 11:20 +SOB, on BIPAP. - Objective MAR Reviewed: Yes Vital Signs & Weight: Vital Signs (12 hours) Temp Pulse Resp BP Pulse Ox 08/01/17 10:01 104/56 L 08/01/17 09:51 69 08/01/17 08:00 97.8 F 69 16 99 08/01/17 07:00 97.8 F 08/01/17 04:00 98.6 F Weight Weight 210 lb 8 oz Most Recent Monitor Data Heart Rate from ECG 51 NIBP 93/46 NIBP BP-Mean 56 Respiration from ECG 14 SpO2 99 I&O: 07/31/17 08/01/17 08/02/17 06:59 06:59 06:59 Intake Total 1599 5760 Output Total 0 20 0 Balance 1599 5740 0 Result Diagrams: 08/01/17 04:48 08/01/17 04:48 Phys Exam - Physical Examination HEENT: sclera anicteric Neck: no JVD Respiratory: clear to auscultation bilateral Cardiovascular: RRR Gastrointestinal: soft Musculoskeletal: no edema Neurological: moves all 4 limbs Psychiatric: A&O x 3 Dx/Plan (1) Acute on chronic systolic CHF (congestive heart failure) Code(s): I50.23 - ACUTE ON CHRONIC SYSTOLIC (CONGESTIVE) HEART FAILURE Status : Acute Comment: echo with 20-25% EF Continue PD, as per digitizer operator.. f/u with cardiology. (2) Diabetes type 2, controlled Code(s): E11.9 - TYPE 2 DIABETES MELLITUS WITHOUT COMPLICATIONS Status: Chronic Qualifiers: Diabetes mellitus complication status: with kidney complications Diabetes mellitus complication detail: with nephropathy Diabetes mellitus exterminator helper termite insulin use: without fpc use Qualified Code(s): E11.21 - Type 2 diabetes mellitus with diabetic nephropathy Comment: On sliding scale. (3) ESRD on peritoneal dialysis Code(s): N18.6 - END STAGE RENAL DISEASE; Z99.2 - DEPENDENCE ON RENAL DIALYSIS Status: Chronic Comment: nightly PD X 10 hours at present, pulling about 2.5L per night. Changed higher % dialysate to maximize UF. (4) Elevated troponin Code(s): R74.8 - ABNORMAL LEVELS OF OTHER SERUM ENZYMES Status: Chronic Comment: as per cardiology. (5) HTN (hypertension) Code(s): I10 - ESSENTIAL (PRIMARY) HYPERTENSION Status: Chronic Qualifiers: Hypertension type: essential hypertension Qualified Code(s): I10 - Essential (primary) hypertension Comment: BP low. BP med on hold. - Plan * .
[2017-08-01] MEDS: Sevelamer Carbonate 800 MG TAB PO SCH ×3 (12:03→18:47)
[2017-08-01] MEDS: Magnesium Oxide 400 MG TAB PO SCH (12:05)
[2017-08-01] MEDS: Gabapentin 300 MG CAP PO SCH (12:05)
[2017-08-01] MEDS: traMADol HCl 50 MG TAB PO PRN ×2 (12:05→20:20)
[2017-08-01] MEDS: guaiFENesin ER 600 MG TAB PO SCH ×2 (12:05→20:08)
[2017-08-01] MEDS ORDERED: Lidocaine 1% (PF) 30 ML VIAL ONE ×2 (12:45→13:26)
--- NOTE | 2017-08-01 13:44 | RAD ---
FRONTAL RADIOGRAPH CHEST: DATE: 08/01/17. COMPARISON: 07/28/17. HISTORY: Central line attempt.. FINDINGS: No central venous catheter is appreciated on this examination. No pneumothorax is seen on either brandin e. Cardiac silhouette appears enlarged. There is pulmonary vascular prominence. There is hazy incr eased density in the perihilar regions and both lung bases, right greater than left, suggesting edema and/or infectious pneumonitis/aspiration. IMPRESSION: Prominent cardiac silhouette with pulmonary vascular congestion and bibasilar densities suggest pulmo nary edema. Infection or aspiration cannot be excluded. No pneumothorax seen. POS: [facility]
--- NOTE | 2017-08-01 14:50 | CON ---
DATE OF CONSULTATION: 08/01/2017 HISTORY OF PRESENT ILLNESS: Mr. Pereira is doing better. His blood pressure continues to slowly impr ove. He converted to sinus rhythm this morning. We have tried to titrate down his dobutamine. PHYSICAL EXAMINATION: GENERAL: Patient is a pleasant male who is in no acute distress. The patient appears his stated age . CURRENT VITAL SIGNS: Blood pressure 101/56, pulse 74. Temperature afebrile. He is currently on 5 m cg of dobutamine and 5 mcg of dopamine. NEUROLOGIC: The patient is alert and oriented times 3 with no focal neurologic deficits. HEENT: Sclerae without icterus. Mouth has moist mucous membranes with normal pallor. NECK: No JVD. Carotid upstroke brisk. No bruits bilaterally. LUNGS: Clear to auscultation with unlabored respirations. BACK: No scoliosis or kyphosis. CARDIAC: Regular rate and rhythm with normal S1 and S2. No S3 or S4 noted. No significant rubs, mu rmurs, thrills, or gallops noted throughout the precordium. PMI is not displaced. There is no mark ternal heave. ABDOMEN: Soft, nontender, nondistended. No peritoneal signs present. No hepatosplenomegaly. No ab normal striae. EXTREMITIES: 2+ femoral and 2+ dorsalis pedis pulses. No cyanosis, clubbing, or edema. SKIN: No gross abnormalities. PERTINENT LABS: Hemoglobin 11.3, creatinine 11.0. IMPRESSION: 1. Severe three-vessel disease. 2. Ischemic cardiomyopathy. 3. Hypotension. 4. End-stage renal disease. RECOMMENDATIONS: I am pleased that Mr. Pereira has converted back to sinus rhythm. His blood pressur e appears to be improving while in sinus rhythm. We will continue IV amiodarone. We will try and ti trate down his dopamine. We will await blood cultures. He is currently on antibiotic therapy. If h is blood cultures are negative, plan on stent placement to the right coronary artery on Friday.
--- NOTE | 2017-08-01 14:55 | PRG ---
DATE OF SERVICE: 08/01/2017 SERVICE: Pulmonary Medicine. INTERVAL HISTORY: The patient in great from a respiratory standpoint. He denies any current fevers, chills, nausea or vomiting. He has increasing difficulty with breathing. He remains on room air, bu t feels that it is harder for him to catch his breath. He feels more comfortable sitting up. Otherw ise, there has been no interval change to his condition. PHYSICAL EXAMINATION: VITAL SIGNS: Afebrile, pulse 67, blood pressure 101/56, respirations 18, saturation 98% on room air. GENERAL: Patient is awake, alert, no apparent distress. LUNGS: Decent air entry with no prolonged expiratory phase. There is no wheezing or rhonchi, but cr ackles are present HEART: Normal rate, regular. ABDOMEN: Soft, nontender, nondistended. Bowel sounds are positive. MUSCULOSKELETAL: No cyanosis or clubbing. There is no pitting in the bilateral lower extremities. NEUROLOGIC: Grossly nonfocal. LABORATORY DATA: WBC 4.3, hemoglobin 11.3, platelets 99,000 and roughly stable. Neutrophil count is roughly stable at 79%. Creatinine 11.02 and BUN 70. Basic metabolic profile is otherwise unremarka ble. Blood cultures x2 and influenza are unremarkable. IMAGING: Chest x-ray demonstrates findings consistent with volume overload with cephalization. Prom inent cardiac silhouette. There is some degree of pulmonary edema. ASSESSMENT: 1. Acute hypoxic respiratory failure. 2. Acute bronchitis. 3. End-stage renal disease, on peritoneal dialysis. 4. Severe sepsis, source unknown. PLAN: We will continue to follow the blood cultures. We will continue our empiric antibiotics. At this point, I do believe the patient has had no volume. His lungs are sounding touch wetter. We are going to continue our inotropic medications. Add a little bit of BiPAP to see if this assists with this heart. Hopefully, this will increase his blood pressure. If not, an IJ will need to be placed. We will try to minimize her fluids moving forward and hopefully, he will get through this without n eeding additional aggressive interventions.
[2017-08-01] MEDS: Amiodarone HCl 450 MG, Admixture Fee 1 EACH in Dextrose 5% in Water 250 ML IVPB SCH ×3 (15:20)
[2017-08-01] MEDS: DOBUTamine 500 mg/250 ml 250 ML IVPB SCH (15:20)
[2017-08-01] MEDS: Aspirin 325 MG TAB PO SCH (15:21)
[2017-08-01] MEDS: Ferrous Sulfate 325 MG TAB PO SCH (15:24)
[2017-08-01] MEDS: Heparin 5,000 UNITS/ML VIAL SC SCH ×2 (15:24→20:09)
[2017-08-01] MEDS: HYDROcodone/Acetaminophen 5/325 mg Tablet PO PRN (16:08)
--- NOTE | 2017-08-01 19:25 | OP ---
DATE: 08/01/2017 PREOPERATIVE DIAGNOSES: Hypotension, congestive heart failure. POSTOPERATIVE DIAGNOSES: Hypotension, congestive heart failure. PROCEDURES: 1. Attempted right subclavian and right internal jugular vein central line, unable to pass a wire. 2. Left femoral triple lumen catheter placement. SURGEON: Bull Briscoe M.D. ANESTHESIA: Local. ESTIMATED BLOOD LOSS: Minimal. COMPLICATIONS: None. TECHNIQUE: The right and left groins were shaved. The neck and chest were prepped and draped in a s terile fashion. Local anesthetic infiltrated under the right clavicle as well as over the right inte rnal jugular vein. Internal jugular vein cannulated using a 22-gauge spinal needle followed by a Natalie amelia needle. Multiple attempts to pass a wire were unsuccessful. The subclavian approach was trie d and again the vein is able to be cannulated, but the wire was not able to be passed. Tractions pul led down on the right arm without any improvement, so new kit was opened and the left groin was prepp ed and draped in a sterile fashion. It had previously been shaved. Local anesthetic infiltrated ove r the left femoral vein. Femoral vein cannulated using a Seldinger needle. Wire was passed under no tension. A rolanda was made at the wire entrance site. The wire was used as a guide to dilate the fem oral vein. Triple lumen catheter was threaded to its fullest extent. All ports flushed and lake blo od without difficulty. Each was flushed with a saline solution. Antimicrobial disk was placed and s terile dressings. Patient tolerated procedure well.
[2017-08-01] MEDS: Famotidine 20 MG TAB PO SCH (20:08)
[2017-08-01] MEDS: Piperacillin/Tazobactam 2.25 GM in Sodium Chloride 0.9% 100 ML IVPB SCH (20:08)
[2017-08-01] MEDS: DOPamine 400 MG/D5W 250 ML 250 ML IVPB SCH (20:17)
[2017-08-01] MEDS: HumaLOG 300 UNITS/3 ML VIAL SC PRN (21:56)
[2017-08-02 05:40] LABS: #Lymphocytes 0.6 thou/uL (1.20-3.40); #Monocytes 0.4 thou/uL (0.11-0.59); #Neutrophils 4.5 thou/uL (1.40-6.50); %Basophils 0.2 % (0.0-1.0); %Eosinophils 0.2 % (0.0-10.0); %Lymphocytes 10.3 % (21.0-51.0); %Monocytes 7.7 % (0.0-10.0); %Neutrophils 81.6 % (42.0-75.0); Hemoglobin 10.7 g/dL (14.0-18.0); Mean Corpuscular HGB CONC 31.8 g/dL (32.0-36.0); Mean Corpuscular Hemoglobin 29.3 pg (27.0-31.0); Mean Corpuscular Volume 92.1 fl (80.0-94.0); Mean Platelet Volume 9.3 fL (7.4-10.4); Platelet Count 95 thou/uL (130-400); RBC Distribution Width 13.9 % (11.5-14.5); Red Blood Cell (RBC) Count 3.64 mill/uL (4.70-6.10); White Blood Cell (WBC) Count 5.5 thou/uL (4.8-10.8)
[2017-08-02 05:47] LABS: Anion Gap 19 mmol/L (10-20); BUN (Urea Nitrogen) 72 mg/dL (8.4-25.7); Calc. Creatinine Clearance 8 mL/min (70-130); Calcium 8.2 mg/dL (7.8-10.44); Carbon Dioxide 23 mmol/L (23-31); Chloride 93 mmol/L (98-107); Estimated GFR-MDRD 5; Glucose 332 mg/dL (83-110); Potassium 3.6 mmol/L (3.5-5.1); Sodium 131 mmol/L (136-145)
[2017-08-02] MEDS: Piperacillin/Tazobactam 2.25 GM in Sodium Chloride 0.9% 100 ML IVPB SCH ×3 (06:19→22:00)
[2017-08-02] MEDS: traMADol HCl 50 MG TAB PO PRN ×2 (06:21→13:31)
[2017-08-02] MEDS: Amiodarone HCl 450 MG, Admixture Fee 1 EACH in Dextrose 5% in Water 250 ML IVPB SCH ×6 (06:28→16:52)
[2017-08-02] MEDS: HumaLOG 300 UNITS/3 ML VIAL SC PRN (06:33)
[2017-08-02] MEDS: Ondansetron HCl/PF 4 MG/2 ML Vial SLOW IVP PRN (06:41)
[2017-08-02] MEDS: DOPamine 400 MG/D5W 250 ML 250 ML IVPB SCH ×2 (07:17→19:55)
[2017-08-02] MEDS: Carvedilol 6.25 MG TAB PO SCH (08:06)
[2017-08-02] MEDS: Sevelamer Carbonate 800 MG TAB PO SCH ×3 (10:43→18:14)
[2017-08-02] MEDS: Ferrous Sulfate 325 MG TAB PO SCH (10:43)
[2017-08-02] MEDS: guaiFENesin ER 600 MG TAB PO SCH ×2 (10:44→19:54)
[2017-08-02] MEDS: Magnesium Oxide 400 MG TAB PO SCH (10:44)
[2017-08-02] MEDS: Gabapentin 300 MG CAP PO SCH (10:44)
[2017-08-02] MEDS: Aspirin 325 MG TAB PO SCH (10:44)
[2017-08-02] MEDS: Heparin 5,000 UNITS/ML VIAL SC SCH ×2 (10:44→19:54)
[2017-08-02] MEDS: HYDROcodone/Acetaminophen 5/325 mg Tablet PO PRN (10:56)
--- NOTE | 2017-08-02 12:32 | PRG ---
DATE OF SERVICE: 08/02/2017 SUBJECTIVE: Mr. Pereira is a 72-year-old male with ESRD - on peritoneal dialysis and admitte d for congestive heart failure. He has undergone a cardiac catheterization, which showed 3-vessel di sease. In addition, the patient was seen by Surgery for placement of a left femoral triple lumen cat heter. The patient voices no new complaints today. Still with some mild shortness of breath, but this is im proved from the last previous days. The patient has been seen by Cardiothoracic Surgery and recommen dation is to refer him out to another facility due to the fact that the patient is not willing to und ergo blood transfusion due to episcopal reasons. No new complaints today. OBJECTIVE: VITAL SIGNS: Blood pressure is 104/41, heart rate 47, respiratory rate 11, pulse ox 100%. GENERAL: Noted to be awake, supine, comfortable, not in overt distress. SKIN: Adequate turgor. HEENT: He has slightly pale conjunctivae, anicteric sclerae. NECK: No neck mass, no carotid bruits, no JVD. CHEST: No deformities. LUNGS: Decreased breath sounds. HEART: Normal sinus rhythm. No murmur, no gallops, no rubs. ABDOMEN: Globular, soft, nontender, no masses. Positive for PD catheter. EXTREMITIES: No edema. MEDICATIONS: Of 08/02/2017 was reviewed. LABORATORY DATA: Of 08/02/2017 showed white count of 5.5, hemoglobin 10.7. Sodium 131, potassium 3. 6, chloride 93, carbon dioxide 23, BUN 72, creatinine 10.86, glucose 232, calcium 8.2. ASSESSMENT AND PLAN: 1. End-stage renal disease, stable. Continue current CCPD regimen. Using 4.25% peritoneal dialysis solution to enhance fluid removal. 2. Coronary artery disease/status post cardiac catheterization. Continue supportive care. The plan is to attempt coronary stent placement? Cardiology is following. 3. Borderline anemia. Continue Epogen on a weekly dose of 7500 units subcutaneously daily, and adju st as needed. 4. Congestive heart failure - clinically improving, on IV dobutamine and dopamine.
--- NOTE | 2017-08-02 15:29 | PDOC.PN ---
- Subjective Encounter Start Date: 08/02/17 Encounter Start Time: 15:28 Patient seen at bedside. Overnight had episodes of hypotension and dobutamine increased. Denies any acute complaints at this time. - Objective MAR Reviewed: Yes Vital Signs & Weight: Vital Signs (12 hours) Temp Pulse Resp BP Pulse Ox 08/02/17 12:00 97.5 F L 08/02/17 10:24 99 08/02/17 08:06 96/41 L 08/02/17 08:00 98.3 F 47 L 12 99 08/02/17 04:00 98.6 F Weight Weight 210 lb 8 oz Most Recent Monitor Data Heart Rate from ECG 68 NIBP 101/52 NIBP BP-Mean 68 Respiration from ECG 13 SpO2 100 I&O: 08/01/17 08/02/17 08/03/17 06:59 06:59 06:59 Intake Total 5760 1778.4 340 Output Total 20 0 0 Balance 5740 1778.4 340 Result Diagrams: 08/02/17 05:00 08/02/17 05:00 Additional Labs: Accuchecks 08/02/17 08/01/17 08/01/17 12:13 21:51 18:21 POC Glucose 102 285 H 156 H Phys Exam - Physical Examination Constitutional: NAD HEENT: moist MMs Neck: no JVD Respiratory: clear to auscultation bilateral Cardiovascular: RRR Gastrointestinal: soft Neurological: moves all 4 limbs Psychiatric: A&O x 3 Dx/Plan (1) Acute on chronic systolic CHF (congestive heart failure) Code(s): I50.23 - ACUTE ON CHRONIC SYSTOLIC (CONGESTIVE) HEART FAILURE Status : Acute Comment: echo with 20-25% EF Continue PD, as per grades 1 thru 6 home teacher.. f/u with cardiology. (2) Diabetes type 2, controlled Code(s): E11.9 - TYPE 2 DIABETES MELLITUS WITHOUT COMPLICATIONS Status: Chronic Qualifiers: Diabetes mellitus complication status: with kidney complications Diabetes mellitus complication detail: with nephropathy Diabetes mellitus termite control technician insulin use: without termite control technician use Qualified Code(s): E11.21 - Type 2 diabetes mellitus with diabetic nephropathy Comment: On sliding scale. (3) ESRD on peritoneal dialysis Code(s): N18.6 - END STAGE RENAL DISEASE; Z99.2 - DEPENDENCE ON RENAL DIALYSIS Status: Chronic Comment: nightly PD X 10 hours at present, pulling about 2.5L per night. Changed higher % dialysate to maximize UF. - Plan cont current plan of care, continue antibiotics, psych social worker, respiratory therapy, DVT proph w/SCDs * Continue with dopamine and dobutamine for hemodynamic support. * IV Zosyn. Will continue. Consider D/C if no fevers, and no evidence of systemic infection * ASA/Amiodarone * No FRANCK or BB due to hypotension * For Cardiac catheterization on Friday
[2017-08-02] MEDS: Acetaminophen 325 MG TAB PO PRN ×2 (16:01→19:54)
--- NOTE | 2017-08-02 19:04 | PRG ---
DATE OF SERVICE: 08/02/2017 SUBJECTIVE: Scott Pereira is awake, alert, and responsive. He had RSV positive yesterday, which i s probably colonization, appears to be in no distress. He slept on the BiPAP with good results. PHYSICAL EXAMINATION VITAL SIGNS: Sats 94, blood pressure 96/41. I's and O's 1778 in and 0 out. CHEST: Extensive rhonchi. CARDIAC: Normal S1, S2, no gallops. ABDOMEN: Soft. LABORATORY DATA: White count 5000, H and H 10 and 31, platelet count low at 95 and creatinine is 10, BUN 72. X-ray shows left effusion. IMPRESSION: Congestive heart failure, atrial fibrillation, and chronic renal failure. Dobutrex (dobutamine) on board. He cannot be transferred because off all pressors. Continue support bridgette care. It looks like it is sleep apnea, I would continue nocturnal BiPAP.
[2017-08-02] MEDS: Famotidine 20 MG TAB PO SCH (19:54)
[2017-08-02] MEDS: DOBUTamine 500 mg/250 ml 250 ML IVPB SCH (21:17)
[2017-08-03] MEDS: Piperacillin/Tazobactam 2.25 GM in Sodium Chloride 0.9% 100 ML IVPB SCH ×3 (04:59→21:16)
[2017-08-03 05:45] LABS: #Eosinphils 0.1 thou/uL (0.0-0.7); #Lymphocytes 0.5 thou/uL (1.20-3.40); #Monocytes 0.5 thou/uL (0.11-0.59); #Neutrophils 5.1 thou/uL (1.40-6.50); %Basophils 0.2 % (0.0-1.0); %Eosinophils 1.4 % (0.0-10.0); %Lymphocytes 8.4 % (21.0-51.0); %Monocytes 8.4 % (0.0-10.0); %Neutrophils 81.5 % (42.0-75.0); Hemoglobin 11.1 g/dL (14.0-18.0); Mean Corpuscular HGB CONC 31.9 g/dL (32.0-36.0); Mean Corpuscular Volume 90.9 fl (80.0-94.0); Mean Platelet Volume 9.1 fL (7.4-10.4); Platelet Count 104 thou/uL (130-400); Red Blood Cell (RBC) Count 3.85 mill/uL (4.70-6.10); White Blood Cell (WBC) Count 6.3 thou/uL (4.8-10.8)
[2017-08-03 05:50] LABS: Anion Gap 19 mmol/L (10-20); BUN (Urea Nitrogen) 72 mg/dL (8.4-25.7); Calc. Creatinine Clearance 8 mL/min (70-130); Carbon Dioxide 24 mmol/L (23-31); Chloride 92 mmol/L (98-107); Estimated GFR-MDRD 5; Glucose 354 mg/dL (83-110); Potassium 3.6 mmol/L (3.5-5.1); Sodium 131 mmol/L (136-145)
[2017-08-03] MEDS: Amiodarone HCl 450 MG, Admixture Fee 1 EACH in Dextrose 5% in Water 250 ML IVPB SCH ×9 (06:40→20:47)
[2017-08-03] MEDS: DOPamine 400 MG/D5W 250 ML 250 ML IVPB SCH ×2 (06:40→20:46)
[2017-08-03] MEDS: HumaLOG 300 UNITS/3 ML VIAL SC PRN ×2 (06:49→21:10)
[2017-08-03] MEDS: Aspirin 325 MG TAB PO SCH (10:18)
[2017-08-03] MEDS: Ferrous Sulfate 325 MG TAB PO SCH (10:18)
[2017-08-03] MEDS: Sevelamer Carbonate 800 MG TAB PO SCH ×3 (10:18→20:55)
[2017-08-03] MEDS: Magnesium Oxide 400 MG TAB PO SCH (10:19)
[2017-08-03] MEDS: guaiFENesin ER 600 MG TAB PO SCH ×2 (10:19→21:16)
[2017-08-03] MEDS: Gabapentin 300 MG CAP PO SCH (10:19)
[2017-08-03] MEDS: Heparin 5,000 UNITS/ML VIAL SC SCH ×2 (10:19→20:39)
[2017-08-03] MEDS: Acetaminophen 325 MG TAB PO PRN ×2 (10:22→16:47)
[2017-08-03] MEDS ORDERED: Communication Order-Pharmacy FS SCH (11:30)
--- NOTE | 2017-08-03 11:46 | PRG ---
DATE OF SERVICE: 08/03/2017 RENAL MEDICINE SUBJECTIVE: Mr. Pereira is a 72-year-old male with ESRD and admitted for congestive heart fa ilure. He underwent cardiac catheterization with findings of three-vessel disease. The plan is to m anage him conservatively. He will have another repeat cardiac catheterization for possible/attempt f or coronary stent placement. The shortness of breath is much improved. He is currently on dopamine and dobutamine. We are maxing out ultrafiltration by the peritoneal dialysis. OBJECTIVE: VITAL SIGNS: Blood pressure is 120/51, heart rate 58, respiratory rate 15, pulse ox 98%. GENERAL: Awake, alert, comfortable, obese, not in distress. SKIN: Adequate turgor. HEENT: He has pinkish conjunctivae, anicteric sclerae. NECK: No neck mass, no carotid bruits, no JVD. CHEST: No deformities. LUNGS: Clear breath sounds. HEART: Normal sinus rhythm. No murmur, no gallops, no rubs. ABDOMEN: Globular, soft, nontender, no masses. EXTREMITIES: No edema. Please note he has a PD catheter on abdomen. MEDICATIONS: Of 08/03/2017 was reviewed. LABORATORY: Of 08/03/2017: White count 6.2, hemoglobin 11.1. Sodium 131, potassium 3.6, chloride 9 2, carbon dioxide 24, BUN 72, creatinine 10.93, glucose 354, calcium 8.0. ASSESSMENT AND PLAN: 1. End-stage renal disease, stable. Continue current CCPD regimen, tolerating said treatment. We a re able to do adequate ultrafiltration with this patient. We will continue to current 4.25% PD solut ion. 2. Congestive heart failure/coronary artery disease, having for a plan repeat cardiac catheterizatio n with coronary stent placement in a.m. 3. Borderline anemia. Having the patient Islam. No blood transfusion. Continue curren t weekly Epogen.
[2017-08-03] MEDS: HYDROcodone/Acetaminophen 5/325 mg Tablet PO PRN (12:18)
--- NOTE | 2017-08-03 13:53 | PDOC.PN ---
- Subjective Encounter Start Date: 08/03/17 Encounter Start Time: 13:51 Patient seen at bedside. No overnight events, still requiring Dobutamine. C/O Headache - Objective MAR Reviewed: Yes Vital Signs & Weight: Vital Signs (12 hours) Temp Pulse Pulse Pulse Resp BP BP 08/03/17 12:25 55 L 56 L 101/39 L 101/41 L 08/03/17 12:00 98.0 F 08/03/17 08:10 08/03/17 07:58 97.6 F 60 14 08/03/17 07:00 97.6 F Pulse Ox Pulse Ox Pulse Ox 08/03/17 12:25 94 L 98 08/03/17 12:00 08/03/17 08:10 98 08/03/17 07:58 99 08/03/17 07:00 Weight Weight 210 lb 8 oz Most Recent Monitor Data Heart Rate from ECG 55 NIBP 102/45 NIBP BP-Mean 54 Respiration from ECG 18 SpO2 100 I&O: 08/02/17 08/03/17 08/04/17 06:59 06:59 06:59 Intake Total 1778.4 2338 250 Output Total 0 0 0 Balance 1778.4 2338 250 Result Diagrams: 08/03/17 05:08 08/03/17 05:08 Additional Labs: Accuchecks 08/03/17 08/02/17 12:10 17:58 POC Glucose 74 139 H Phys Exam - Physical Examination Constitutional: NAD HEENT: moist MMs Neck: no JVD Respiratory: clear to auscultation bilateral Cardiovascular: RRR Gastrointestinal: soft PD catheter in place Neurological: moves all 4 limbs Psychiatric: A&O x 3 Dx/Plan (1) Acute on chronic systolic CHF (congestive heart failure) Code(s): I50.23 - ACUTE ON CHRONIC SYSTOLIC (CONGESTIVE) HEART FAILURE Status : Acute Comment: echo with 20-25% EF Continue PD, as per hatch supervisor.. f/u with cardiology. (2) Diabetes type 2, controlled Code(s): E11.9 - TYPE 2 DIABETES MELLITUS WITHOUT COMPLICATIONS Status: Chronic Qualifiers: Diabetes mellitus complication status: with kidney complications Diabetes mellitus complication detail: with nephropathy Diabetes mellitus custodial insulin use: without termite control servicer use Qualified Code(s): E11.21 - Type 2 diabetes mellitus with diabetic nephropathy Comment: On sliding scale. (3) ESRD on peritoneal dialysis Code(s): N18.6 - END STAGE RENAL DISEASE; Z99.2 - DEPENDENCE ON RENAL DIALYSIS Status: Chronic Comment: nightly PD X 10 hours at present, pulling about 2.5L per night. Changed higher % dialysate to maximize UF. - Plan cont current plan of care, continue antibiotics, respiratory therapy, DVT proph w/SCDs * Continue with inotropic support. * D/C Coreg * Continue with Amiodarone * PD per nephrology * For Cardiac catheterization in AM
[2017-08-03] MEDS: traMADol HCl 50 MG TAB PO PRN (14:05)
--- NOTE | 2017-08-03 14:07 | PRG ---
DATE OF SERVICE: 08/03/2017 SUBJECTIVE: This morning he is awake, alert, responsive. OBJECTIVE: VITAL SIGNS: Blood pressure 101/41, temperature 97, respirations 14, sats 100%, pulse 56. GENERAL: Denies any pain or shortness of breath. CHEST: Decreased breath sounds, no wheezing. CARDIAC: Normal S1 and S2. No gallops. LABORATORY DATA: White count 6, H and H 11 and 30, platelet count low 104, creatinine is 10. IMPRESSION: 1. Chronic renal failure. 2. Probable sleep apnea. 3. Chronic obstructive pulmonary disease. 4. Congestive heart failure. PLAN: He has been withdrawn on Dobutrex, neb treatments, empiric antibiotics, CPAP as tolerated. Co ntinue PT, diet, nutrition. We will follow while in the ICU.
[2017-08-03] MEDS: DOBUTamine 500 mg/250 ml 250 ML IVPB SCH (15:55)
[2017-08-03] MEDS: HYDROcodone/Acetaminophen 10/325 mg Tablet PO PRN (20:37)
[2017-08-03] MEDS: Famotidine 20 MG TAB PO SCH (20:38)
[2017-08-04 05:19] LABS: #Eosinphils 0.1 thou/uL (0.0-0.7); #Lymphocytes 0.5 thou/uL (1.20-3.40); #Monocytes 0.5 thou/uL (0.11-0.59); #Neutrophils 5.3 thou/uL (1.40-6.50); %Basophils 0.3 % (0.0-1.0); %Eosinophils 1.9 % (0.0-10.0); %Lymphocytes 8.1 % (21.0-51.0); %Neutrophils 82.7 % (42.0-75.0); Hemoglobin 11.3 g/dL (14.0-18.0); Mean Corpuscular HGB CONC 34.1 g/dL (32.0-36.0); Mean Corpuscular Hemoglobin 30.6 pg (27.0-31.0); Mean Corpuscular Volume 89.9 fl (80.0-94.0); Mean Platelet Volume 8.9 fL (7.4-10.4); Platelet Count 103 thou/uL (130-400); RBC Distribution Width 13.9 % (11.5-14.5); Red Blood Cell (RBC) Count 3.68 mill/uL (4.70-6.10); White Blood Cell (WBC) Count 6.5 thou/uL (4.8-10.8)
[2017-08-04 05:28] LABS: Anion Gap 20 mmol/L (10-20); BUN (Urea Nitrogen) 60 mg/dL (8.4-25.7); Calc. Creatinine Clearance 9 mL/min (70-130); Carbon Dioxide 24 mmol/L (23-31); Chloride 91 mmol/L (98-107); Estimated GFR-MDRD 5; Glucose 267 mg/dL (83-110); Potassium 3.5 mmol/L (3.5-5.1); Sodium 131 mmol/L (136-145)
[2017-08-04] MEDS: Piperacillin/Tazobactam 2.25 GM in Sodium Chloride 0.9% 100 ML IVPB SCH ×3 (05:28→21:01)
[2017-08-04] MEDS: Aspirin 325 MG TAB PO SCH (05:30)
[2017-08-04] MEDS: Sevelamer Carbonate 800 MG TAB PO SCH ×3 (05:30→17:15)
[2017-08-04] MEDS: Ferrous Sulfate 325 MG TAB PO SCH (05:30)
[2017-08-04] MEDS: Gabapentin 300 MG CAP PO SCH (05:31)
[2017-08-04] MEDS: guaiFENesin ER 600 MG TAB PO SCH ×2 (05:31→20:13)
[2017-08-04] MEDS: Magnesium Oxide 400 MG TAB PO SCH (05:59)
[2017-08-04] MEDS: DOPamine 400 MG/D5W 250 ML 250 ML IVPB SCH ×2 (07:52→20:12)
[2017-08-04] MEDS: Heparin 5,000 UNITS/ML VIAL SC SCH ×2 (07:52→20:13)
[2017-08-04] MEDS ORDERED: Iopamidol 370 76% 50 ML VIAL FS ONE (08:10)
[2017-08-04] MEDS ORDERED: Iopamidol 370 76% 100 ML VIAL ONE (08:10)
[2017-08-04] MEDS ORDERED: Heparin 0 ML ONE (10:10)
[2017-08-04] MEDS ORDERED: Heparin 10,000 UNITS/1 ML VIAL ONE ×2 (10:11→12:34)
[2017-08-04] MEDS: Amiodarone HCl 450 MG, Admixture Fee 1 EACH in Dextrose 5% in Water 250 ML IVPB SCH ×3 (10:16)
--- NOTE | 2017-08-04 10:23 | PRG ---
DATE OF SERVICE: 08/04/2017 SUBJECTIVE: Mr. Pereira has wanted to talk to me about proceeding with stent placement. He had quest ions about blood products and being Cheondoism. There was a misunderstanding. He felt that t he recommendation was to fix both, but I could not because of blood products. I reemphasized to Mr. Pereira that I felt his symptoms are likely related to the right coronary artery which is a big vessel with a big distribution. The circumflex artery appears small and had a bifurcation and would like t o see how he improves with stent placement to the right coronary artery. I did state blood loss shou ld be minimal, although if emergency surgery is needed that would be were blood would be required. H e under no circumstances does not want any blood products, even if that means . His family was present and they agree. I do respect his wishes and will not proceed with any blood products if need ed. The patient would like to proceed with stent placement to the right coronary artery today at our institution and will be transferred. I did give him the option for transfer, but feels comfortable proceeding here.
[2017-08-04] MEDS: DOBUTamine 500 mg/250 ml 250 ML IVPB SCH ×2 (10:52→20:14)
[2017-08-04] MEDS ORDERED: Verapamil 5 MG/2 ML VIAL ONE (11:03)
[2017-08-04] MEDS ORDERED: Nitroglycerin 100MG/250ML BOT 250 ML ONE (11:03)
[2017-08-04] MEDS ORDERED: Adenosine 6 MG/2 ML VIAL ONE (11:04)
--- NOTE | 2017-08-04 11:51 | PDOC.PN ---
- Subjective Encounter Start Date: 08/04/17 Encounter Start Time: 14:30 Subjective: Some cough and sore throat. Otherwise doing well since cath and stent -: placement. No chest pain. No SOB. - Objective MAR Reviewed: Yes Vital Signs & Weight: Vital Signs (12 hours) Temp Pulse Resp Pulse Ox 08/04/17 07:29 97.7 F 64 19 97 08/04/17 07:00 97.7 F 08/04/17 04:00 98.4 F 08/04/17 00:00 98.2 F Weight Weight 210 lb 8 oz Most Recent Monitor Data Heart Rate from ECG 66 NIBP 127/56 NIBP BP-Mean 67 Respiration from ECG 19 SpO2 100 I&O: 08/03/17 08/04/17 08/05/17 06:59 06:59 06:59 Intake Total 2338 2173 0 Output Total 0 0 0 Balance 2338 2173 0 Result Diagrams: 08/04/17 04:15 08/04/17 04:15 Additional Labs: Accuchecks 08/04/17 08/03/17 08/03/17 10:47 20:59 18:05 POC Glucose 145 H 234 H 134 H 08/03/17 12:10 POC Glucose 74 Phys Exam - Physical Examination Constitutional: NAD HEENT: moist MMs Respiratory: no wheezing, no rales, no rhonchi Cardiovascular: RRR, no significant murmur Gastrointestinal: soft, positive bowel sounds Neurological: non-focal, moves all 4 limbs Psychiatric: normal affect, A&O x 3 Dx/Plan (1) Acute on chronic systolic CHF (congestive heart failure) Code(s): I50.23 - ACUTE ON CHRONIC SYSTOLIC (CONGESTIVE) HEART FAILURE Status : Acute Comment: echo with 20-25% EF Continue PD, as per computer installation engineer.. f/u with cardiology. (2) Diabetes type 2, controlled Code(s): E11.9 - TYPE 2 DIABETES MELLITUS WITHOUT COMPLICATIONS Status: Chronic Qualifiers: Diabetes mellitus complication status: with kidney complications Diabetes mellitus complication detail: with nephropathy Diabetes mellitus group home insulin use: without group home use Qualified Code(s): E11.21 - Type 2 diabetes mellitus with diabetic nephropathy Comment: On sliding scale. (3) ESRD on peritoneal dialysis Code(s): N18.6 - END STAGE RENAL DISEASE; Z99.2 - DEPENDENCE ON RENAL DIALYSIS Status: Chronic Comment: nightly PD X 10 hours at present, pulling about 2.5L per night. Changed higher % dialysate to maximize UF. (4) HTN (hypertension) Code(s): I10 - ESSENTIAL (PRIMARY) HYPERTENSION Status: Chronic Qualifiers: Hypertension type: essential hypertension Qualified Code(s): I10 - Essential (primary) hypertension Comment: BP low. BP med on hold. (5) CAD (coronary artery disease) Code(s): I25.10 - ATHSCL HEART DISEASE OF [place] CORONARY ARTERY W/O ANG PCTRS Status: Acute Qualifiers: Coronary Disease-Associated Artery/Lesion type: [place] artery Comment: s/p stent to RCA - Plan cont current plan of care cath and stent to RCA today -: [employer]- refuses any blood products * . - Discharge Day Encounter end time: 14:45
[2017-08-04] MEDS ORDERED: Clopidogrel Bisulfate 300 MG TAB ONE (12:33)
[2017-08-04 13:34] VITALS: BP 114/44
[2017-08-04] MEDS ORDERED: Nitroglycerin 0.4 MG TAB 1 EACH SL PRN (14:12)
[2017-08-04] MEDS: HYDROcodone/Acetaminophen 10/325 mg Tablet PO PRN ×2 (14:22→20:25)
[2017-08-04] MEDS ORDERED: Benzonatate 100 MG CAP PO PRN (14:49)
[2017-08-04] MEDS ORDERED: Chloraseptic Spray 180 ml Bottle PO PRN ×2 (14:50→14:52)
--- NOTE | 2017-08-04 15:03 | PRG ---
DATE OF SERVICE: 08/04/2017 SERVICE: Pulmonary Medicine. INTERVAL HISTORY: The patient is doing fine from a cardiovascular and respiratory standpoint. He de nies any current shortness of breath, chills, nausea, vomiting or chest discomfort. He is going down for cardiac catheterization today. He remains on a couple of inotropic agents. He is concerned abo ut a little bit of a tremor that he has developed. He demonstrated very significant asterixis visual which is most likely was causing that. Otherwise, there has been no interval change to his conditio n. PHYSICAL EXAMINATION: VITAL SIGNS: Afebrile, pulse 73, blood pressure 113/50, respirations 20, saturation 96% on room air. GENERAL: Patient is awake, alert, no apparent distress. LUNGS: Excellent air entry with no prolonged expiratory phase, wheezing, rhonchi or crackles. HEART: Normal rate, regular. ABDOMEN: Soft, nontender, nondistended. Bowel sounds are positive. MUSCULOSKELETAL: No cyanosis or clubbing. 1+ pitting is present. GENITOURINARY: No Batres. NEUROLOGIC: Grossly nonfocal. LABORATORY DATA: CBC is completely unremarkable/stable with hemoglobin 11.3. Creatinine 10.42, BUN 60. Chloride 91, sodium 131. Respiratory virus PCR is positive for tested RSVB. Blood culture x2 i s negative. ASSESSMENT: 1. Acute hypoxic respiratory failure. 2. Acute bronchitis secondary to respiratory syncytial virus B. 3. End-stage renal disease, on peritoneal dialysis. 4. Acute on chronic systolic heart failure. PLAN: The patient has cleared his inflammatory profile and can proceed with PCI if needed. Pulmonar y or Critical Care will continue to follow while he remains in this location. We will work on weanin g his inotropic agents. Ammonia will be added tomorrow morning's lab to make certain that he does no t have any significant toxins that we can pull out the GI tract.
[2017-08-04] MEDS: traMADol HCl 50 MG TAB PO PRN (16:09)
[2017-08-04] MEDS: Famotidine 20 MG TAB PO SCH (20:13)
[2017-08-04] MEDS: Ondansetron HCl/PF 4 MG/2 ML Vial SLOW IVP PRN (20:57)
[2017-08-05] MEDS: Amiodarone HCl 450 MG, Admixture Fee 1 EACH in Dextrose 5% in Water 250 ML IVPB SCH ×3 (03:08)
[2017-08-05 05:29] LABS: #Basophils 0.1 thou/uL (0.0-0.2); #Eosinphils 0.1 thou/uL (0.0-0.7); #Lymphocytes 0.6 thou/uL (1.20-3.40); #Monocytes 0.7 thou/uL (0.11-0.59); #Neutrophils 6.6 thou/uL (1.40-6.50); %Eosinophils 1.5 % (0.0-10.0); %Lymphocytes 7.5 % (21.0-51.0); %Monocytes 8.4 % (0.0-10.0); %Neutrophils 81.6 % (42.0-75.0); Hemoglobin 10.5 g/dL (14.0-18.0); Mean Corpuscular HGB CONC 32.5 g/dL (32.0-36.0); Mean Corpuscular Hemoglobin 29.1 pg (27.0-31.0); Mean Corpuscular Volume 89.5 fl (80.0-94.0); Mean Platelet Volume 7.9 fL (7.4-10.4); Platelet Count 136 thou/uL (130-400); RBC Distribution Width 14.1 % (11.5-14.5); White Blood Cell (WBC) Count 8.1 thou/uL (4.8-10.8)
[2017-08-05] MEDS: Piperacillin/Tazobactam 2.25 GM in Sodium Chloride 0.9% 100 ML IVPB SCH (05:40)
[2017-08-05] MEDS: HumaLOG 300 UNITS/3 ML VIAL SC PRN (05:45)
[2017-08-05 05:50] LABS: ALT (SGPT) 20 U/L (8-55); AST (SGOT) 22 U/L (5-34); Albumin 2.8 g/dL (3.4-4.8); Alkaline Phosphatase 57 U/L (40-150); Anion Gap 19 mmol/L (10-20); BUN (Urea Nitrogen) 65 mg/dL (8.4-25.7); Bilirubin, Total 0.5 mg/dL (0.2-1.2); Calc. Creatinine Clearance 8 mL/min (70-130); Calcium 7.9 mg/dL (7.8-10.44); Carbon Dioxide 25 mmol/L (23-31); Chloride 92 mmol/L (98-107); Estimated GFR-MDRD 5; Globulin 2.9 g/dL (2.4-3.5); Glucose 219 mg/dL (83-110); Potassium 3.7 mmol/L (3.5-5.1); Protein, Total 5.7 g/dL (5.8-8.1); Sodium 132 mmol/L (136-145)
[2017-08-05] MEDS: Ferrous Sulfate 325 MG TAB PO SCH (08:16)
[2017-08-05] MEDS: Sevelamer Carbonate 800 MG TAB PO SCH ×3 (08:16→16:40)
[2017-08-05] MEDS: Magnesium Oxide 400 MG TAB PO SCH (08:22)
[2017-08-05] MEDS: guaiFENesin ER 600 MG TAB PO SCH ×2 (08:25→20:51)
[2017-08-05] MEDS: Clopidogrel Bisulfate 75 MG TAB PO SCH (08:25)
[2017-08-05] MEDS: Gabapentin 300 MG CAP PO SCH (08:25)
--- NOTE | 2017-08-05 08:48 | PRG ---
DATE OF SERVICE: 08/05/2017 SERVICE: Pulmonary Medicine. INTERVAL HISTORY: The patient is doing fine from a respiratory standpoint. He is breathing comforta damion. He denies any current chest pain or shortness of breath. This throat spray work well for him. Otherwise, there has been no interval change to his condition. There were no overnight events. He remains on both dobutamine and dopamine. PHYSICAL EXAMINATION: VITAL SIGNS: Afebrile, pulse 61, blood pressure 198/43, respirations 18, saturation 97% on 3 liters nasal cannula. GENERAL: The patient is awake, alert, no apparent distress. LUNGS: Decent air entry. There is no prolonged expiratory phase, wheezing, rhonchi, or crackles pre sent. HEART: Normal rate, regular. ABDOMEN: Soft, nontender, nondistended. Bowel sounds are positive. MUSCULOSKELETAL: No cyanosis or clubbing. There is trace pitting in the bilateral lower extremities . NEUROLOGIC: Grossly nonfocal. LABORATORY DATA: WBC 8.1, hemoglobin 10.5, platelets 136,000 and up trending. Creatinine 10.89, BUN 65. Sodium 132. Basic metabolic profile and liver function studies are otherwise unremarkable. ASSESSMENT: 1. Acute hypoxic respiratory failure, improving. 2. Acute bronchitis secondary to respiratory syncytial virus B. 3. End-stage renal disease, on peritoneal dialysis. 4. Acute on chronic systolic heart failure. PLAN: We will continue supportive care. We will see if we can get rid of the dopamine, and the dobu tamine as the day goes on. Ammonia level is currently pending. He will remain in the ICU until we c an get off of some of these pressors. Pulmonary and Critical Care will continue to follow for the ti me being.
[2017-08-05] MEDS: Heparin 5,000 UNITS/ML VIAL SC SCH ×2 (08:56→20:52)
[2017-08-05] MEDS ORDERED: DOPamine 400 MG/D5W 250 ML 250 ML ONE (09:52)
[2017-08-05] MEDS ORDERED: Epoetin (ESRD) 10,000 UNITS/ML VIAL SC SCH (10:00)
--- NOTE | 2017-08-05 10:02 | PRG ---
DATE OF SERVICE: 08/05/2017 SERVICE: Renal Medicine. SUBJECTIVE: Mr. Pereira is a 72-year-old male with ESRD, currently admitted for CHF and prev iously underwent cardiac catheterization with three-vessel coronary artery disease. My plan is to pl ramy a coronary artery stent placement. Patient is willing to take the risk even if he may bleed from the said procedure. Cardiology is currently following. He underwent peritoneal dialysis last night without any difficulty. We were able to pull 2 liters of fluid from his peritoneal dialysis. We us e alternating 4.25/2.5% PD solution at that time. No new complaints today. Breathing is better. OBJECTIVE: VITAL SIGNS: Blood pressure 99/51, heart rate 57, respiratory rate 28, pulse ox 95%. GENERAL: Noted to be awake, supine, somewhat lethargic, not in overt distress. SKIN: Adequate turgor. HEENT: He has a slightly pale conjunctivae, anicteric sclerae. NECK: No neck mass, no carotid bruits. No JVD. CHEST: No deformities. LUNGS: Decreased breath sounds. HEART: Normal sinus rhythm. No murmur, no gallops or rubs. ABDOMEN: Globular, soft, nontender. No masses. EXTREMITIES: Trace edema. MEDICATIONS: Of 08/05/2017 was reviewed. LABORATORY DATA: Of 08/05/2017, white count 8.1, hemoglobin 10.5, sodium 132, potassium 3.7, chlorid e 92, carbon dioxide 25, BUN 65, creatinine 10.89, glucose 219, AST 22, ALT 20. ASSESSMENT AND PLAN: 1. Coronary artery disease/congestive heart failure - Cardiology following. Consideration for a cor onary artery stent placement is made. Currently, the patient is declining any open heart surgery. 2. Anemia - we will increase Epogen from 7500 units to 10,000 units subcutaneously every week. The patient is not feeling to undergo any blood transfusion due to alevism beliefs. 3. End-stage renal disease, stable. We will continue current CCPD regimen. My plan is to use a 2.5 % PD solution tonight. Depending on how much PD fluid we can pull out, we will adjust the PD solution as needed.
--- NOTE | 2017-08-05 11:56 | CON ---
DATE OF SERVICE: 08/05/2017 SUBJECTIVE: Mr. Pereira today had an episode of bradycardia down in 40s. Amiodarone was discontinued . He is fairly asymptomatic. He continues to be dopamine and dobutamine dependent. He is on 5 mcg of dopamine 5 mcg of dobutamine. PHYSICAL EXAMINATION: GENERAL: Patient is a pleasant male who is in no acute distress. The patient appears his stated age . VITAL SIGNS: Blood pressure 104/56, pulse 60, temperature afebrile. NEUROLOGIC: The patient is alert and oriented times 3 with no focal neurologic deficits. HEENT: Sclerae without icterus. Mouth has moist mucous membranes with normal pallor. NECK: No JVD. Carotid upstroke brisk. No bruits bilaterally. LUNGS: Clear to auscultation with unlabored respirations. BACK: No scoliosis or kyphosis. CARDIAC: Regular rate and rhythm with normal S1 and S2. No S3 or S4 noted. No significant rubs, murmurs, thrills, or gallops noted throughout the precordium. PMI is not displaced. There is no parasternal heave. ABDOMEN: Soft, nontender, nondistended. No peritoneal signs present. No hepatosplenomegaly. No abnormal striae. EXTREMITIES: 2+ femoral and 2+ dorsalis pedis pulses. No cyanosis, clubbing, or edema. SKIN: No gross abnormalities. PERTINENT LABORATORY DATA: Hemoglobin 10.5, creatinine 10.89, sodium 132. IMPRESSION: 1. Bradycardia. 2. Severe coronary artery disease. 3. Ischemic cardiomyopathy. 4. End-stage renal disease. 5. Hypotension. RECOMMENDATIONS: I have asked Dr. Mccullough to consult on Mr. Pereira. He is certainly a candidate for IC D placement. He has been on appropriate medical therapy in the past. He was first diagnosed with ca rdiomyopathy 3 years ago. He continues to have episodes of bradycardia. I am concerned about contin uing amiodarone, although patient seems to be decompensated when he goes in atrial fibrillation. We will try to continue to wean off dopamine and dobutamine.
[2017-08-05] MEDS ORDERED: DOPamine 400 MG/D5W 250 ML 250 ML IVPB SCH (18:30)
--- NOTE | 2017-08-05 19:40 | PDOC.PN ---
- Subjective Encounter Start Date: 08/05/17 Encounter Start Time: 19:30 Patient seen and examined. No new complaints. No overnight events. On Dopamine/ Dobutamine drip - Objective MAR Reviewed: Yes Vital Signs & Weight: Vital Signs (12 hours) Temp 08/05/17 15:58 98.3 F 08/05/17 12:00 98.8 F Weight Weight 188 lb 11.451 oz Most Recent Monitor Data Heart Rate from ECG 70 NIBP 106/46 NIBP BP-Mean 60 Respiration from ECG 20 SpO2 91 I&O: 08/04/17 08/05/17 08/06/17 06:59 06:59 06:59 Intake Total 2173 2176 1838 Output Total 0 0 0 Balance 2173 2176 1838 Result Diagrams: 08/06/17 04:17 08/06/17 04:17 Additional Labs: Accuchecks 08/05/17 08/05/17 08/05/17 11:23 05:45 00:37 POC Glucose 75 203 H 209 H EKG Reviewed by me: Yes (Tele SR) Phys Exam - Physical Examination Constitutional: NAD On Dopamine/Dobutamine drip Respiratory: no wheezing, no rhonchi Cardiovascular: RRR, no rub Gastrointestinal: soft, non-tender, no distention, positive bowel sounds Neurological: moves all 4 limbs Dx/Plan - Plan DVT proph w/SCDs IMPRESSION: 1. Acute on chronic systolic/diastolic HF exacerbation 2. NSTEMI 3. Acute Bronchitis due to RSV B 4. Bradycardia - EP consulted 5. ESRD on PD 6. HTN / DM2/ Par Afib/ Ischemic cardiomyopathy/[employer] PLAN: * Cardio/EP/Critical care following * Dialysis per Nephro * Cont to monitor * AM labs * Cont current meds as below Review of Systems - Medications/Allergies Allergies/Adverse Reactions: Allergies Allergy/AdvReac Type Severity Reaction Status Date / Time BLOOD PRODUCTS (JEHOVAH'S Allergy Uncoded 04/09/15 04:52 WITNESS) Medications: Current Medications Acetaminophen (Tylenol) 650 mg PO Q4H PRN PRN Reason: Headache/Fever or Pain Last Admin: 08/03/17 16:47 Dose: 650 mg Acetaminophen/Codeine Phosphate (Tylenol #3) 1 tab PO Q4H PRN PRN Reason: Mild Pain (1-3) Acetaminophen/Codeine Phosphate (Tylenol #3) 2 tab PO Q4H PRN PRN Reason: Moderate Pain (4-6) Hydrocodone Bitart/Acetaminophen ([place] 10/325) 1 tab PO Q4H PRN PRN Reason: Severe Pain (7-10) Last Admin: 08/04/17 20:25 Dose: 1 tab Hydrocodone Bitart/Acetaminophen ([place] 5/325) 1 tab PO Q4H PRN PRN Reason: Moderate Pain (4-6) Last Admin: 08/03/17 12:18 Dose: 1 tab Albuterol/Ipratropium (Duoneb) 3 ml NEB Q4H PRN PRN Reason: Dyspnea/Wheezing/SOB Last Admin: 07/31/17 07:57 Dose: 3 ml Amiodarone HCl (Cordarone) 200 mg PO BID [facility] Aspirin (Aspirin Chewable) 81 mg PO DAILY [facility] Last Admin: 08/05/17 08:25 Dose: 81 mg Clopidogrel Bisulfate (Plavix) 75 mg PO DAILY [facility] Last Admin: 08/05/17 08:25 Dose: 75 mg Dextrose/Water (Dextrose 50%) 25 gm SLOW IVP PRN PRN PRN Reason: Hypoglycemia Epoetin Sammy (Procrit) 10,000 units SC Q7D@1000 [facility] Last Admin: 08/05/17 11:31 Dose: 10,000 units Famotidine (Pepcid) 20 mg PO QPM [facility] Last Admin: 08/04/17 20:13 Dose: 20 mg Ferrous Sulfate (Feosol) 325 mg PO QAM-WM [facility] Last Admin: 08/05/17 08:16 Dose: 325 mg Gabapentin (Neurontin) 300 mg PO DAILY [facility] Last Admin: 08/05/17 08:25 Dose: 300 mg Glucagon (Glucagon) 1 mg IM PRN PRN PRN Reason: Hypoglycemia Guaifenesin (Mucinex) 1,200 mg PO Q12HR [facility] Last Admin: 08/05/17 08:25 Dose: 1,200 mg Heparin Sodium (Porcine) (Heparin) 5,000 units SC BID [facility] Last Admin: 08/05/17 08:56 Dose: 5,000 units Dextrose/Water (D5w) 1,000 mls @ 0 mls/hr IV .Q0M PRN; As Directed PRN Reason: Hypoglycemia Dobutamine HCl/Dextrose (Dobutamine 500 Mg/250 Ml) 250 mls @ 14.172 mls/hr IVPB INF JOSE; 5 MCG/KG/MIN PRN Reason: Protocol Last Admin: 08/04/17 20:14 Dose: 250 mls Dopamine HCl/Dextrose (Dopamine/D5w) 250 mls @ 0 mls/hr IVPB INF JOSE PRN Reason: As Directed Insulin Human Lispro (Humalog) 0 units SC .MODERATE SLIDING SC PRN; Protocol PRN Reason: MODERATE SLIDING SCALE Last Admin: 08/05/17 05:45 Dose: 4 unit Lactulose (Lactulose) 20 gm PO DAILY [facility] Last Admin: 08/05/17 10:47 Dose: Not Given Magnesium Oxide (Magnesium Oxide) 400 mg PO DAILY [facility] Last Admin: 08/05/17 08:22 Dose: 400 mg Nitroglycerin (Nitrostat) 0.4 mg SL Q5MIN PRN PRN Reason: Chest Pain Ondansetron HCl (Zofran) 4 mg SLOW IVP Q6H PRN PRN Reason: Nausea/Vomiting Last Admin: 08/04/17 20:57 Dose: 4 mg Phenol (Chloraseptic [place] 180 Ml Bot) 0 ml PO Q2H PRN PRN Reason: Sore Throat Senna (Senokot) 2 tab PO HSPRN PRN PRN Reason: Constipation Last Admin: 07/31/17 09:02 Dose: 2 tab Sevelamer Carbonate (Renvela) 800 mg PO TID-[facility] Last Admin: 08/05/17 16:40 Dose: 800 mg Sodium Chloride (Flush - Normal Saline) 10 ml IVF Q12HR [facility] Last Admin: 08/05/17 10:47 Dose: 10 ml Sodium Chloride (Flush - Normal Saline) 10 ml IVF PRN PRN PRN Reason: Saline Flush Tramadol HCl (Ultram) 50 mg PO Q6H PRN PRN Reason: Moderate Pain (4-6) Last Admin: 08/04/17 16:09 Dose: 50 mg
[2017-08-05] MEDS: Amiodarone 200 MG TAB PO SCH (20:51)
[2017-08-05] MEDS: Famotidine 20 MG TAB PO SCH (20:51)
[2017-08-05] MEDS: DOBUTamine 500 mg/250 ml 250 ML IVPB SCH (20:51)
[2017-08-05] MEDS: Ondansetron HCl/PF 4 MG/2 ML Vial SLOW IVP PRN (21:07)
[2017-08-06 04:35] LABS: #Eosinphils 0.1 thou/uL (0.0-0.7); #Lymphocytes 0.6 thou/uL (1.20-3.40); #Monocytes 0.7 thou/uL (0.11-0.59); #Neutrophils 6.8 thou/uL (1.40-6.50); %Basophils 0.3 % (0.0-1.0); %Eosinophils 1.3 % (0.0-10.0); %Lymphocytes 7.4 % (21.0-51.0); %Monocytes 8.3 % (0.0-10.0); %Neutrophils 82.8 % (42.0-75.0); Hemoglobin 10.1 g/dL (14.0-18.0); Mean Corpuscular HGB CONC 33.6 g/dL (32.0-36.0); Mean Corpuscular Hemoglobin 29.8 pg (27.0-31.0); Mean Corpuscular Volume 88.6 fl (80.0-94.0); Mean Platelet Volume 7.5 fL (7.4-10.4); Platelet Count 131 thou/uL (130-400); RBC Distribution Width 14.2 % (11.5-14.5); Red Blood Cell (RBC) Count 3.39 mill/uL (4.70-6.10); White Blood Cell (WBC) Count 8.2 thou/uL (4.8-10.8)
[2017-08-06 04:57] LABS: Anion Gap 21 mmol/L (10-20); BUN (Urea Nitrogen) 70 mg/dL (8.4-25.7); Calc. Creatinine Clearance 8 mL/min (70-130); Calcium 8.1 mg/dL (7.8-10.44); Carbon Dioxide 24 mmol/L (23-31); Chloride 91 mmol/L (98-107); Estimated GFR-MDRD 5; Glucose 159 mg/dL (83-110); Potassium 3.9 mmol/L (3.5-5.1); Sodium 132 mmol/L (136-145)
--- NOTE | 2017-08-06 06:31 | CON ---
ELECTROPHYSIOLOGY CONSULTATION REPORT DATE OF SERVICE: 08/05/2017 REFERRING PHYSICIAN: Hi Willson MD I am seeing Mr. Pereira at our [facility] ICU as an electrophysiology telesales consultant. His proble ms are: 1. Chronic systolic congestive heart failure with ischemic cardiomyopathy. A. History of chronic reduced LVEF with most recent echo on 07/29/2017, EF 20% to 25%, [id number] MR, moderate aortic regurgitation, and moderate TR. B. Catheterization on 07/31/2017 demonstrated severe 3-vessel disease with 80% mid circumflex st enosis, 90% proximal RCA stenosis. C. Status post stent placement on 07/29/2017. 2. Cardiogenic shock requiring pressors. 3. Paroxysmal atrial fibrillation, requiring IV amiodarone for suppression. 4. Relative bradycardia on IV amiodarone, requiring stopping amiodarone. 5. End-stage renal disease on peritoneal dialysis. 6. Coronary artery receptors. A. Type 2 diabetes. B. Hypertension. 7. History of chronic anemia. 8. Low platelet counts. ALLERGIES: BLOOD PRODUCTS. The patient is a [employer]. MEDICATIONS AT HOME: Included Renvela, tramadol, calcitriol, gabapentin, magnesium oxide, sennosides . SUBJECTIVE: Mr. Pereira is here with symptoms of progressive shortness of breath and left sided chest pain 3 days prior to admission, has some productive cough, he did have some night sweats. Dr. Julio blanton evaluated the patient and he underwent the procedure as above including stent placement. Post-p rocedure, he developed atrial fibrillation and required IV amiodarone for suppression, is off IV amio darone. Currently, patient seems to be doing fair. He is still on the bed in the ICU, but without c omplaints of chest pains or significant dyspnea at rest. He has no PND or orthopnea either at this t sadia. No more fever, chills, or cough. No stroke-like symptoms. No neurological deficits are noted. REVIEW OF SYSTEMS: Rest of the 12-point review of systems otherwise unremarkable. PAST MEDICAL HISTORY: As above. SOCIAL HISTORY: Patient denies smoking, EtOH, or drug abuse. FAMILY HISTORY: Noncontributory. OBJECTIVE: VITAL SIGNS: Blood pressure most recently is 112/50, heart rate 76, respirations 17, temperature 98. 3 degrees Fahrenheit. GENERAL: He is alert and oriented man, in no apparent distress. NECK: Supple. Jugular veins not distended. CHEST: Coarse without crackles. CARDIAC: Heart sounds are regular rate and rhythm. No murmur or gallop is appreciated. PMI is nonp alpable. ABDOMEN: Benign. Bowel sounds positive. EXTREMITIES: Lower extremities without edema, clubbing, or cyanosis. Some toe amputations are noted . NEUROLOGIC: Patient is nonfocal. MUSCULOSKELETAL: No joint swelling or deformities. SKIN: Without rash. DATABASE: EKG reviewed revealing sinus rhythm currently without significant ST-T changes. Previous EKG did reveal some atrial fibrillation. This morning bradycardia in the 50s noted. Subsequently, t he amiodarone was stop, then his heart rate improved. LABORATORY DATA: White count is 8.1, hemoglobin 10.5, platelet count is 136. Sodium 132, potassium 3.7, BUN is 65, creatinine is 10.89. ASSESSMENT AND PLAN: Mr. Pereira is a pleasant 72-year-old man with prior history of chronic congesti ve heart failure LV function. He underwent recent intervention with Dr. Willson. His LVEF c ontinues to be poor. He still requires pressors, although in improving trend, his atrial fibrillatio n was well suppressed with IV amiodarone loading, but now it is off due to mild bradycardia. This gentleman has been having chronic reduced left ventricular systolic function, has been on medica l therapy, although his LVEF has not improved remarkably. On the other hand, he did just underwent r ecent intervention, which could potentially improve his LV function. He has issues with tachy and bradyarrhythmias. The complication for ICD implant candidate is the recent coronary intervention. At this point, I wou ld advise further medical therapy prior to his ICD implant, and if bradycardia becomes severe, it prema ht be reasonable to consider implanting a pacing device prior to the 3 months post-intervention perio d to complete. For now, the bradycardia is not extreme, would continue p.o. amiodarone for suppressi ng atrial fibrillation. Monitor with you and if heart rates remains reasonable, he might benefit fro m a LifeVest as well prior to discharge. We will discuss with Dr. Willson.
[2017-08-06] MEDS: Sevelamer Carbonate 800 MG TAB PO SCH ×3 (09:02→16:40)
[2017-08-06] MEDS: Gabapentin 300 MG CAP PO SCH (09:02)
[2017-08-06] MEDS: Ferrous Sulfate 325 MG TAB PO SCH (09:02)
[2017-08-06] MEDS: guaiFENesin ER 600 MG TAB PO SCH ×2 (09:02→20:12)
[2017-08-06] MEDS: Clopidogrel Bisulfate 75 MG TAB PO SCH (09:02)
[2017-08-06] MEDS: Amiodarone 200 MG TAB PO SCH ×2 (09:02→20:12)
[2017-08-06] MEDS: Magnesium Oxide 400 MG TAB PO SCH (09:03)
[2017-08-06] MEDS: Heparin 5,000 UNITS/ML VIAL SC SCH (09:03)
--- NOTE | 2017-08-06 10:07 | PRG ---
DATE OF SERVICE: 08/06/2017 SUBJECTIVE: Mr. Pereira is a 72-year-old male being followed up for his ESRD, currently on maintenance peritoneal dialysis. Doing well with the dialysis. He has had episodes of bradycardia. Please note he has been on amiodarone. He continues to be on dopamine and dobutamine. He has evaluated by Dr. Mccullough for a possible ICD placement. Please note this patient has underlying c ardiomyopathy. He has also 3-vessel disease. This morning he seems to be a bit agitated and confused. PHYSICAL EXAMINATION: VITAL SIGNS: Blood pressure is 105/45, heart rate 65, respiratory rate 15, temperature 98, pulse ox 97%. GENERAL: Noted to be awake, comfortable, not in overt distress. SKIN: Adequate turgor. HEENT: Slightly pale conjunctivae, anicteric sclerae. NECK: No neck mass, no carotid bruits, no JVD. CHEST: No deformities. LUNGS: Decreased breath sounds. HEART: Normal sinus rhythm. No murmur, no gallops or rubs. ABDOMEN: Globular, soft, nontender, no masses. Positive for PD catheter. EXTREMITIES: Positive for edema, but no deformities. MEDICATIONS: 08/06/2017 - Reviewed. LABORATORY: 08/06/2017 - White count 8.2, hemoglobin 10.1. Sodium 132, potassium 3.9, chloride 91, carbon dioxide 24, BUN 70, creatinine 10.85, glucose 159, calcium 8.1. ASSESSMENT AND PLAN: 1. End-stage renal disease, stable. Continue current CCPD regimen. Using 2.5% PD solution. If nee ded, we can adjust this upwards to enhance ultrafiltration. However, he is tolerating the current re gimen. He is not in overt volume overload. As a matter of fact, congestive heart failure is much im proved. 2. Congestive heart failure/coronary artery disease. Cardiology is following. The patient underwen t a cardiac catheterization with three-vessel disease. He is not wanting any CABG for the moment. 3. Anemia. The patient is declining blood transfusion. We will try to max out Epogen - currently on 10,000 units subcu q. week. Overall, prognosis remains guarded with this patient.
--- NOTE | 2017-08-06 10:57 | PRG ---
DATE OF SERVICE: 08/06/2017 SERVICE: Pulmonary Medicine. INTERVAL HISTORY: Overnight, the patient had multiple conversations with his family. He charley y talked to his daughter, Alfred. He told her that he is no longer interested in curative therapy. Stefan foss would like to discontinue all interventions aimed at heart issues, and even discontinue dialysis. He does understand this means that his life would come to close at some point over the next couple of weeks. That being said, he is suggesting that even in his usual state of health, he does not have v clau much quality of life. As such, he is very comfortable with making transition over to comfort car e only to allow for natural . Otherwise, there has been no interval change to his condition. Stefan foss removed his femoral line yesterday. He got replaced, but after was replaced, he did not have any a dditional requirements for the dopamine or the dobutamine. OBJECTIVE: VITAL SIGNS: Afebrile, pulse 67, blood pressure 121/50, respirations 24, saturation 99% on 2 liters nasal cannula. GENERAL: Patient is awake, alert, in no apparent distress. LUNGS: Excellent air entry. Dependent crackles are minimal. HEART: Normal rate, regular. ABDOMEN: Soft, nontender, nondistended. Bowel sounds are positive. MUSCULOSKELETAL: No cyanosis or clubbing. There is no pitting in the bilateral lower extremities. NEUROLOGIC: Grossly nonfocal. LABORATORY DATA: WBC 8.2, hemoglobin 10.1, platelets 131,000. Creatinine 10.85, BUN 70. Anion gap 21 and up trending. Bicarbonate 24. Basic metabolic profile is otherwise unremarkable. Respiratory virus panel is positive for respiratory syncytial virus. Blood cultures x2 are unremarkable. Influ vanessa A and B is negative. ASSESSMENT: 1. Acute hypoxic respiratory failure, improving. 2. Acute bronchitis secondary to respiratory syncytial virus B. 3. End-stage renal disease, on peritoneal dialysis. 4. Acute on chronic systolic heart failure. 5. Cardiogenic shock, suspected. PLAN: The patient would like to transition home with hospice. As such, we will arrange for this to occur. Case management consultation will be placed, so they can discuss which hospice options would be in the best interest of this family. Ultimately, the patient would like to transition home if pos sible. He is having severe asterixis associated with metabolic derangements. I suggested him that t here is not much of that I am be able to do that fix this thing. In order to do this, he would have to increase clearance of his toxins. I have touch base with the patient's daughter. She agrees with our course of action moving forward.
--- NOTE | 2017-08-06 10:59 | PRG ---
DATE OF SERVICE: 08/06/2017 SUBJECTIVE: Mr. Pereira seems to be doing fair today, although he is somewhat upset, wants to finish peritoneal dialysis and no more intervention according to him. He did pull out his line. He is now off the pressors. OBJECTIVE: VITAL SIGNS: Blood pressure 120/58, heart rate 67. The patient is afebrile. GENERAL: Reveals an alert and oriented man in no apparent distress. NECK: Supple. Jugular veins not distended. CHEST: Coarse without crackles. CARDIOVASCULAR: Heart sounds are regular to rate and rhythm. No murmur or gallop. ABDOMEN: Benign. Bowel sounds positive. EXTREMITIES: Lower extremities without edema, clubbing or cyanosis. DATABASE: The telemetry strips reviewed reveal continued sinus rhythm. No significant QT prolongati on. ASSESSMENT AND PLAN: Mr. Pereira is a 72-year-old man with prior history of congestive heart failure and ischemic cardiomyopathy. He has a long history of decreased LVEF, but now admitted with mild tro ponin rise and underwent coronary intervention by Dr. Willson. He also had atrial fibrillation wit h RVR requiring IV amiodarone suppression which was eventually held due to mild bradycardia, now he i s back on p.o. amiodarone with no severe bradycardia at this time. I did discuss treatment options yesterday with this gentleman, hence the recent intervention and I wo uld prefer waiting with his prophylactic ICD implant, although the chance for marked improvement for his LV function is slim. If though severe bradyarrhythmia are seen ICD implantation could be a consi deration just for pacing purposes in the meantime. The alternative to that LifeVest therapy could be considered for next 3 months and reassess LV function after that. At this point, on the other hand, he is requesting no more interventions. Hopefully this is just a t ransient issue with him. We will follow him in the office.
--- NOTE | 2017-08-06 13:56 | OP-2 ---
DATE OF PROCEDURE: 08/06/2017 PROCEDURE: Right femoral central line. INDICATION: Need for dopamine and dobutamine. PROCEDURE JEWELRY RACKER: Dr. Sonja Sin and Dr. Javier Corrigan. ATTENDING PHYSICIAN: Dr. Darren Bashir. ULTRASOUND USE: Yes. PATIENT CONSENT: A consent was obtained from the patient's sister prior to the procedure. Indications, risks and benefits were explained at length. PROCEDURE SUMMARY: A timeout was performed. Hands were washed immediately prior to procedure. Sterile procedure was followed including wearing a surgical cap, mask with protective eyewear, sterile gown, and sterile gloves throughout the procedure. The right inguinal region was prepped using chlorhexidine scrub and draped in a sterile fashion using a full sheet drape. The femoral vein and femoral artery were both identified via ultrasound. Anesthesia was achieved using 1% lidocaine. Ultrasound guidance was performed and a femoral vein was visualized throughout the entire procedure. The introducer needle was inserted inferior to the inguinal crease and into the femoral vein. Venous blood was withdrawn. A guidewire was advanced into the introducer needle and advanced without resistance. A small incision was made at the skin surface with a scalpel and the introducer needle was exchanged for dilator over the guidewire. After appropriate dilation was obtained, the dilator was exchanged over the wire for a triple-lumen central venous catheter. The wire was removed and each of the lumens of the catheter were aspirated and flushed. The catheter was sutured in place. Sterile SorbaView shield was placed over the catheter at the insertion site. The patient tolerated the procedure without any hemodynamic compromise. At the time of procedure completion, estimated blood loss is less than 50 mL. Attending addendum: I was present for the entire procedure. KRISTINA
--- NOTE | 2017-08-06 14:33 | PRG ---
DATE OF SERVICE: 08/06/2017 SUBJECTIVE: Mr. Pereira today has decided to not proceed with any further therapy. He has decided to not proceed with dialysis. He states he is tired and would like to go home. He will be sent home o n hospice. PHYSICAL EXAMINATION: VITAL SIGNS: Blood pressure 107/43, pulse 65, temperature afebrile. LUNGS: Clear to auscultation. CARDIAC: Regular rate and rhythm. ABDOMEN: Soft, nontender, nondistended. EXTREMITIES: No edema. IMPRESSION: 1. Severe coronary artery disease. 2. Ischemic cardiomyopathy. 3. End-stage renal disease. 4. Hypotension. RECOMMENDATIONS: Mr. Pereira was decided to proceed with hospice treatment at home. He will be disch arged today. I had a long discussion with him and his son. We would certainly honor his wishes.
[2017-08-06] MEDS: traMADol HCl 50 MG TAB PO PRN ×2 (15:53→22:55)
--- NOTE | 2017-08-06 17:02 | PDOC.PN ---
- Subjective Encounter Start Date: 08/06/17 Encounter Start Time: 16:55 Patient seen and examined. No new complaints. No overnight events - Objective Resuscitation Status: Resuscitation Status DNR:Do Not Resuscitate MAR Reviewed: Yes Vital Signs & Weight: Vital Signs (12 hours) Temp Pulse Resp Pulse Ox 08/06/17 16:00 98.7 F 08/06/17 12:00 98.2 F 08/06/17 08:00 98.0 F 65 15 97 08/06/17 07:00 98.0 F Weight Weight 188 lb 11.451 oz Most Recent Monitor Data Heart Rate from ECG 62 NIBP 107/41 NIBP BP-Mean 70 Respiration from ECG 15 SpO2 74 I&O: 08/05/17 08/06/17 08/07/17 06:59 06:59 06:59 Intake Total 2176 1838 720 Output Total 0 0 0 Balance 2176 1838 720 Result Diagrams: 08/06/17 04:17 08/06/17 04:17 Additional Labs: Accuchecks 08/06/17 08/06/17 08/06/17 16:31 11:04 07:31 POC Glucose 97 133 H 137 H 08/05/17 22:05 POC Glucose 132 H EKG Reviewed by me: Yes (Tele SR) Phys Exam - Physical Examination Constitutional: NAD Respiratory: no wheezing, no rhonchi Cardiovascular: RRR, no rub Gastrointestinal: soft, positive bowel sounds Neurological: moves all 4 limbs Dx/Plan - Plan DVT proph w/SCDs IMPRESSION: 1. Acute on chronic systolic/diastolic HF exacerbation 2. NSTEMI 3. Acute Bronchitis due to RSV B 4. Bradycardia - EP consulted 5. ESRD on PD 6. HTN / DM2/ Par Afib/ Ischemic cardiomyopathy/[facility] PLAN: * Await Hospice Eval * Cardio/EP signed off * Dialysis per Nephro * Cont current meds as below * Off Dopamine/Dobutamine Review of Systems - Review of Systems Cardiovascular: negative: chest pain, palpitations, orthopnea, paroxysmal nocturnal dyspnea, edema, light headedness Gastrointestinal: negative: Nausea, Vomiting, Abdominal Pain, Diarrhea, Constipation, Melena, Hematochezia - Medications/Allergies Allergies/Adverse Reactions: Allergies Allergy/AdvReac Type Severity Reaction Status Date / Time BLOOD PRODUCTS (JEHOVAH'S Allergy Uncoded 04/09/15 04:52 WITNESS) Medications: Current Medications Acetaminophen (Tylenol) 650 mg PO Q4H PRN PRN Reason: Headache/Fever or Pain Last Admin: 08/03/17 16:47 Dose: 650 mg Acetaminophen/Codeine Phosphate (Tylenol #3) 1 tab PO Q4H PRN PRN Reason: Mild Pain (1-3) Acetaminophen/Codeine Phosphate (Tylenol #3) 2 tab PO Q4H PRN PRN Reason: Moderate Pain (4-6) Last Admin: 08/06/17 10:08 Dose: 2 tab Hydrocodone Bitart/Acetaminophen ([place] 10/325) 1 tab PO Q4H PRN PRN Reason: Severe Pain (7-10) Last Admin: 08/04/17 20:25 Dose: 1 tab Hydrocodone Bitart/Acetaminophen ([place] 5/325) 1 tab PO Q4H PRN PRN Reason: Moderate Pain (4-6) Last Admin: 08/03/17 12:18 Dose: 1 tab Albuterol/Ipratropium (Duoneb) 3 ml NEB Q4H PRN PRN Reason: Dyspnea/Wheezing/SOB Last Admin: 07/31/17 07:57 Dose: 3 ml Amiodarone HCl (Cordarone) 200 mg PO BID [facility] Last Admin: 08/06/17 09:02 Dose: 200 mg Aspirin (Aspirin Chewable) 81 mg PO DAILY [facility] Last Admin: 08/06/17 09:02 Dose: 81 mg Clopidogrel Bisulfate (Plavix) 75 mg PO DAILY [facility] Last Admin: 08/06/17 09:02 Dose: 75 mg Dextrose/Water (Dextrose 50%) 25 gm SLOW IVP PRN PRN PRN Reason: Hypoglycemia Epoetin Sammy (Procrit) 10,000 units SC Q7D@1000 [facility] Last Admin: 08/05/17 11:31 Dose: 10,000 units Famotidine (Pepcid) 20 mg PO QPM [facility] Last Admin: 08/05/17 20:51 Dose: 20 mg Ferrous Sulfate (Feosol) 325 mg PO QAM-[facility] Last Admin: 08/06/17 09:02 Dose: 325 mg Gabapentin (Neurontin) 300 mg PO DAILY [facility] Last Admin: 08/06/17 09:02 Dose: 300 mg Glucagon (Glucagon) 1 mg IM PRN PRN PRN Reason: Hypoglycemia Guaifenesin (Mucinex) 1,200 mg PO Q12HR [facility] Last Admin: 08/06/17 09:02 Dose: 1,200 mg Dextrose/Water (D5w) 1,000 mls @ 0 mls/hr IV .Q0M PRN; As Directed PRN Reason: Hypoglycemia Insulin Human Lispro (Humalog) 0 units SC .MODERATE SLIDING SC PRN; Protocol PRN Reason: MODERATE SLIDING SCALE Last Admin: 08/05/17 05:45 Dose: 4 unit Lactulose (Lactulose) 20 gm PO DAILY [facility] Last Admin: 08/06/17 10:07 Dose: Not Given Magnesium Oxide (Magnesium Oxide) 400 mg PO DAILY [facility] Last Admin: 08/06/17 09:03 Dose: 400 mg Nitroglycerin (Nitrostat) 0.4 mg SL Q5MIN PRN PRN Reason: Chest Pain Ondansetron HCl (Zofran) 4 mg SLOW IVP Q6H PRN PRN Reason: Nausea/Vomiting Last Admin: 08/05/17 21:07 Dose: 4 mg Phenol (Chloraseptic [place] 180 Ml Bot) 0 ml PO Q2H PRN PRN Reason: Sore Throat Senna (Senokot) 2 tab PO HSPRN PRN PRN Reason: Constipation Last Admin: 07/31/17 09:02 Dose: 2 tab Sevelamer Carbonate (Renvela) 800 mg PO TID-WM [facility] Last Admin: 08/06/17 16:40 Dose: 800 mg Sodium Chloride (Flush - Normal Saline) 10 ml IVF Q12HR [facility] Last Admin: 08/06/17 09:05 Dose: 10 ml Sodium Chloride (Flush - Normal Saline) 10 ml IVF PRN PRN PRN Reason: Saline Flush Tramadol HCl (Ultram) 50 mg PO Q6H PRN PRN Reason: Moderate Pain (4-6) Last Admin: 08/06/17 15:53 Dose: 50 mg
--- NOTE | 2017-08-06 18:29 | ADD-PRG ---
ADDENDUM: 08/06/2017 Mr. Pereira has decided to consider hospice. I did discuss the case at length with the patient and th e daughter. He did like to go on hospice and is to be maintained on peritoneal dialysis. I did agre e with that. The patient will be placed on hospice due to his cardiomyopathy, not from his ESRD. Th e continued peritoneal dialysis is part of the comfort measures with this patient due to his volume o verload.
[2017-08-06] MEDS: Famotidine 20 MG TAB PO SCH (20:12)
[2017-08-06] MEDS: HYDROcodone/Acetaminophen 10/325 mg Tablet PO PRN (20:23)
--- NOTE | 2017-08-07 00:46 | EKG ---
Test Reason : POST STENT Blood Pressure : / mmHG Vent. Rate : 070 BPM Atrial Rate : 070 BPM P-R Int : 288 ms QRS Dur : 120 ms QT Int : 450 ms P-R-T Axes : -10 -37 137 degrees QTc Int : 486 ms Sinus rhythm with 1st degree A-V block Left axis deviation Incomplete left bundle branch block T wave abnormality, consider lateral ischemia Abnormal ECG When compared with ECG of 31-JUL-2017 22:17, (Unconfirmed) Sinus rhythm has replaced Junctional rhythm Confirmed by NITIN WAHL, DR. Jacobs (4) on 08/07/2017 12:45:37 AM Referred By: JEFF Confirmed By:DR. Reynaldo TAVERAS MD
--- NOTE | 2017-08-07 00:47 | EKG ---
Test Reason : Blood Pressure : / mmHG Vent. Rate : 057 BPM Atrial Rate : 057 BPM P-R Int : 266 ms QRS Dur : 116 ms QT Int : 454 ms P-R-T Axes : 081 -28 152 degrees QTc Int : 441 ms Sinus bradycardia with 1st degree A-V block with Fusion complexes Incomplete left bundle branch block Abnormal ECG When compared with ECG of 04-AUG-2017 14:01, (Unconfirmed) Fusion complexes are now Present Confirmed by NITIN WAHL, DR. Jacobs (4) on 08/07/2017 12:46:32 AM Referred By: JEFF Confirmed By:DR. Reynaldo TAVERAS MD
--- NOTE | 2017-08-07 00:52 | EKG ---
Test Reason : Blood Pressure : / mmHG Vent. Rate : 065 BPM Atrial Rate : 065 BPM P-R Int : 268 ms QRS Dur : 116 ms QT Int : 504 ms P-R-T Axes : 023 -38 204 degrees QTc Int : 524 ms Sinus rhythm with 1st degree A-V block Left axis deviation Incomplete left bundle branch block T wave abnormality, consider lateral ischemia Prolonged QT Abnormal ECG When compared with ECG of 05-AUG-2017 06:56, (Unconfirmed) Fusion complexes are no longer Present QT has lengthened Confirmed by NITIN WAHL, . STonia (4) on 08/07/2017 12:52:41 AM Referred By: [facility] Confirmed By:DR. Reynaldo TAVERAS MD
[2017-08-07] MEDS: HumaLOG 300 UNITS/3 ML VIAL SC PRN (06:13)
[2017-08-07] MEDS: Magnesium Oxide 400 MG TAB PO SCH (08:25)
[2017-08-07] MEDS: Ferrous Sulfate 325 MG TAB PO SCH (08:25)
[2017-08-07] MEDS: Clopidogrel Bisulfate 75 MG TAB PO SCH (08:25)
[2017-08-07] MEDS: Sevelamer Carbonate 800 MG TAB PO SCH ×3 (08:25→17:11)
[2017-08-07] MEDS: Amiodarone 200 MG TAB PO SCH (08:25)
[2017-08-07] MEDS: Gabapentin 300 MG CAP PO SCH (08:26)
[2017-08-07] MEDS: guaiFENesin ER 600 MG TAB PO SCH (08:26)
--- NOTE | 2017-08-07 08:50 | PRG ---
DATE OF SERVICE: 08/07/2017 SERVICE: Renal Medicine. SUBJECTIVE: Mr. Pereira is a 72-year-old male with coronary artery disease, ESRD and current ly on maintenance peritoneal dialysis. He underwent peritoneal dialysis without any difficulty. Paula smith has decided to go to hospice with continue peritoneal dialysis. The peritoneal dialysis been do ne as part of comfort measures. He is going to hospice for the reason of having end-stage heart dise ase/cardiomyopathy. No new complaints today. The patient is to be discharged today. PHYSICAL EXAMINATION: VITAL SIGNS: Blood pressure 115/54, heart rate 63, respiratory rate 24, pulse ox 95%. GENERAL: Awake, alert, comfortable, not in overt distress. SKIN: Adequate turgor. HEENT: He has pinkish conjunctivae, anicteric sclerae. NECK: No neck mass, no carotid bruits, no JVD. CHEST: No deformities. LUNGS: Decreased breath sounds. HEART: Normal sinus rhythm. No murmur, no gallops, no rubs. ABDOMEN: Globular, soft, nontender. EXTREMITIES: Positive for edema. MEDICATIONS: Of 08/07/2017 was reviewed. LABORATORY DATA: Of 08/06/2017, hemoglobin 10.1, sodium 132, potassium 3.9, chloride 91, carbon diox kaylen 24, BUN 70, creatinine 10.85, glucose 159, calcium 8.1. ASSESSMENT AND PLAN: 1. End-stage renal disease, tolerating current CCPD regimen. The patient will continue current CCPD regimen. At home, this will be done by his daughter. 2. Cardiomyopathy/end-stage heart - the patient is not a surgical candidate. He did receive coronar y stent placement a few days ago. We were hoping that this will improve his overall condition. The patient, however, was decided to go hospice and he would like to go home. We will be signing off.
--- NOTE | 2017-08-07 11:34 | PDOC.EVN ---
Event Note - Event Note Event Note: No ACEI/ARB/Aldactone due to renal failure. No betablockers due to hypotension
--- NOTE | 2017-08-07 11:39 | PRG ---
DATE OF SERVICE: 08/07/2017 SERVICE: Pulmonary Medicine. INTERVAL HISTORY: The patient is doing fine from a respiratory standpoint. He is breathing comforta damion. He is not having any chest discomfort. He continues to have a little bit of hallucination, but has a very good insight into this disease process. He denies any other current fevers, chills, naus ea, vomiting, or overnight events. He continues to demonstrate asterixis. PHYSICAL EXAMINATION: VITAL SIGNS: Afebrile, pulse 51, blood pressure 102/43, respirations 13, saturation 99% on 2 liters nasal cannula. GENERAL: The patient is awake and alert, in no apparent distress. LUNGS: Decent air entry. There are some rhonchi present that clear with cough, but there are no and rescue fire fighter crash fire ckles or wheezing appreciated. HEART: Normal rate, regular. ABDOMEN: Soft, nontender, nondistended. Bowel sounds are positive. MUSCULOSKELETAL: No cyanosis or clubbing. There is trace to 1+ pitting in the bilateral lower extre mities. NEUROLOGIC: Grossly nonfocal. LABORATORY DATA: Blood sugars ranged from 97-152. ASSESSMENT: 1. Acute hypoxic respiratory failure, stable. 2. Acute bronchitis secondary to respiratory syncytial virus bronchiolitis. 3. End-stage renal disease, on peritoneal dialysis. 4. Chronic systolic heart failure, advanced. PLAN: The patient is going to transition home on hospice. If he remains in-house, I will continue t o follow, but from my perspective, as soon as things are arranged at home, we have a good plan in wade ce, he can be transitioned home.
--- NOTE | 2017-08-07 12:02 | DIS ---
DATE OF DISCHARGE: 08/07/2017 DISCHARGE DISPOSITION: Home with home health care through [facility] with palliative care. Home oxy gen will be arranged. CODE STATUS: DO NOT RESUSCITATE. DISCHARGE MEDICATIONS: Amiodarone 200 mg daily, aspirin 81 mg daily, calcitriol 0.5 mcg daily, Plavi x 75 mg daily, Pepcid 20 mg q.p.m., ferrous sulfate 325 mg q.a.m., gabapentin 300 mg daily, Mucinex 6 00 mg b.i.d. for 1 week, sublingual nitroglycerin as needed, Senokot 8.6 mg b.i.d., Renvela 800 mg 3 times daily, tramadol as needed. INPATIENT CONSULTANTS: Cardiology, Dr. Willson; Electrophysiology, Dr. Mccullough; Critical Care and Dr. Pascal. BRIEF HOSPITAL COURSE: Patient is a 72-year-old male with diabetes mellitus, type 2; end-stage renal disease, on peritoneal dialysis; hypertension; coronary artery disease; and paroxysmal atrial fibril lation; presented to the hospital with shortness of breath on 07/29/2017. Please refer to the histor y and physical dated 07/29/2017 for further details. The patient was admitted to the Intensive Care Unit with a diagnosis of acute on chronic systolic/adriel stolic heart failure exacerbation. His repeat echocardiogram showed ejection fraction of 20%-25% ran ge with moderate aortic regurgitation and moderate tricuspid regurgitation. He was seen by Cardiolog y, Dr. Willson. A cardiac catheterization was performed that showed severe multivessel disease. Stefan foss also developed atrial fibrillation that converted to sinus rhythm with amiodarone. He was placed o n dopamine with dobutamine due to congestive heart failure with hypotension. He initially decided on stent placement versus CABG. Later on, patient declined the stent placement as well. He will go ho me with home health care with palliative care and eventually transition to hospice. The plan of care was discussed with the patient and the family in detail. They stated understanding. Please refer to the various consultation and progress notes for details. Total time coordinating the discharge of this patient was 38 minutes. FINAL DIAGNOSES: 1. Acute on chronic systolic/diastolic heart failure exacerbation. 2. Severe coronary artery disease with non-ST elevation myocardial infarction. 3. Acute bronchitis due to respiratory syncytial virus, type B. 4. Bradycardia, on amiodarone. The patient was seen by Electrophysiology, Dr. Mccullough, who recommended continuing amiodarone. 5. Ischemic cardiomyopathy. 6. End-stage renal disease, on peritoneal dialysis. 7. Hypertension. 8. Diabetes mellitus, type 2. 9. Paroxysmal atrial fibrillation, converted to sinus rhythm. 10. Patient is a Restorationist. 11. Chronic anemia, probably secondary to renal disease. 12. Thrombocytopenia, resolved. 13. Hyponatremia 14. Metabolic acidosis. SIGNIFICANT LABORATORY DATA: Maximum troponin was 0.356. Hemoglobin A1c was 6.5. Plan of care was discussed in detail. They stated understanding.
[2017-08-07] MEDS: HYDROcodone/Acetaminophen 10/325 mg Tablet PO PRN (12:12)
[2017-08-07 16:19] VITALS: TEMP 97.7
--- NOTE | 2017-08-08 01:51 | PRG ---
DATE OF SERVICE: 08/07/2017 SUBJECTIVE: Mr. Pereira is doing fair. He has been pff pressors. He decided to go on hospice. Continues with peritonel dyalisis. OBJECTIVE: VITAL SIGNS: Blood pressure 102/43, heart rate 69, respirations 13, afebrile. GENERAL: Alert and oriented man in no apparent distress, who is sleepy this am. NECK: Supple. Jugular veins not distended. CHEST: Coarse, no crackles. CARDIOVASCULAR: Heart sounds are regular to rate and rhythm. No murmur or gallop. ABDOMEN: Benign. Bowel sounds positive. EXTREMITIES: Lower extremities without edema, clubbing, or cyanosis. DATABASE: Sinus nick 50 while at sleep. No afib. ASSESSMENT AND PLAN: Mr. Pereira is a 72-year-old man with history of CHF with exacerbation, ischemic cardiomyopathy, who also had mild troponin elevation on admission and coronary stenting by Dr. Wlilson. He alos developed atrial fibrillation with rapid rate, but now supressed after amiodarone loading. He prefers no intervention and is opting for hospice. It would be reasonable to continue lowered dose of amiodarone despite mild bradycardia. For now poor ICD candidate hence recetn intervention. Pacing may be considerd if he becomes symptomatic. ALternatively we could hold amiodarone. I would be happy to see this gentleman again in the office as necessary. MTDD
[2017-08-08] MEDS ORDERED: Amiodarone 200 MG TAB PO SCH (09:00)
== END 2017-08-07 17:40 | disposition home health service (06) | DRG 248 ==
LOC: ERS 12:20 → 2SW 18:46 → OBSVTOIN 07-29 09:42 → CCU 07-31 13:10
PROVIDERS: ADMIT Internal Medicine Infectious Disease; ATTEND Internal Medicine Infectious Disease
PROC: 5A1D70Z Performance of Urinary Filtration, Intermittent, Less than 6 Hours Per Day (ICD-10-PCS; principal; 2017-07-29)
PROC: 4A023N7 Measurement of Cardiac Sampling and Pressure, Left Heart, Percutaneous Approach (ICD-10-PCS; 2017-07-31)
PROC: B2111ZZ Fluoroscopy of Multiple Coronary Arteries using Low Osmolar Contrast (ICD-10-PCS; 2017-07-31)
PROC: B2151ZZ Fluoroscopy of Left Heart using Low Osmolar Contrast (ICD-10-PCS; 2017-07-31)
PROC: 06HY33Z Insertion of Infusion Device into Lower Vein, Percutaneous Approach (ICD-10-PCS; 2017-08-01)
PROC: 02703DZ Dilation of Coronary Artery, One Artery with Intraluminal Device, Percutaneous Approach (ICD-10-PCS; 2017-08-04)
PROC: B2111ZZ Fluoroscopy of Multiple Coronary Arteries using Low Osmolar Contrast (ICD-10-PCS; 2017-08-04)
PROC: 06HY33Z Insertion of Infusion Device into Lower Vein, Percutaneous Approach (ICD-10-PCS; 2017-08-06)
DX: I13.2 Hypertensive heart and chronic kidney disease with heart failure and with stage 5 chronic kidney disease, or end stage renal disease (principal); J96.01 Acute respiratory failure with hypoxia; I21.4 Non-ST elevation (NSTEMI) myocardial infarction; R57.0 Cardiogenic shock; D69.6 Thrombocytopenia, unspecified; E11.21 Type 2 diabetes mellitus with diabetic nephropathy; E11.22 Type 2 diabetes mellitus with diabetic chronic kidney disease; N18.6 End stage renal disease; I50.23 Acute on chronic systolic (congestive) heart failure; E87.1 Hypo-osmolality and hyponatremia; E87.2 Acidosis; J21.0 Acute bronchiolitis due to respiratory syncytial virus; N25.81 Secondary hyperparathyroidism of renal origin; I25.5 Ischemic cardiomyopathy; I25.10 Atherosclerotic heart disease of native coronary artery without angina pectoris; I08.2 Rheumatic disorders of both aortic and tricuspid valves; J44.9 Chronic obstructive pulmonary disease, unspecified; Z51.5 Encounter for palliative care; Z66 Do not resuscitate; I48.0 Paroxysmal atrial fibrillation; D63.1 Anemia in chronic kidney disease
CPT/HCPCS: 36415; 36416; 71045; 76942; 80048; 80053; 80061; 82140; 82553; 83036; 83735; 84484; 85025; 85347; 87040; 87633; 87798; 90945; 92928; 93005; 93010; 93306; 93454; 93458; 93798; 94640; 94660; 94760; 96374; A4216; C1725; C1769; C1876; C1887; G0257; G8978-GP-CL; G8979-GP-CI; G8987-GO-CK; G8987-GO-CL; G8988-GO-CI; G8988-GO-CJ; J0153; J0282; J1250; J1265; J1644; J1940; J2001; J2405; J2543; J7050; J7070; J7620; Q4081